=== PATIENT | male | born 1940 | race Caucasian/White ===

== ENCOUNTER → 2016-08-22 | Outpatient (CLI) | payer MEDICARE, BC ==
--- NOTE | 2016-08-22 11:40 | REP ---
CHEST, TWO VIEWS: HISTORY: Dyspnea. Linear densities are present in the lower lobes consistent with atelectasis or scar. There is blunting of the left costophrenic angle due to pleural thickening or a small pleural effusion. The heart is normal in size. The pulmonary vasculature is normal in appearance. The bony structure is intact. IMPRESSION: 1. Bibasilar atelectasis or scar. 2. There is blunting of the left costophrenic angle due to pleural thickening or a small pleural effusion. Signed by Micah Mcdonald MD 08/22/2016 11:41 A
[2016-08-22 14:20] LABS: MEAN CORPUSCULAR HEMOGLOBIN 28.8 pg (27.0-33.0); MEAN CORPUSCULAR HGB CONC 30.7 g/dl (32.0-36.5); MEAN CORPUSCULAR VOLUME 93.9 fl (80.0-96.0); RED CELL DISTRIBUTION WIDTH 14.2 % (11.5-14.5); WHITE BLOOD COUNT 7.3 K/mm3 (4.0-10.0)
[2016-08-22 14:40] LABS: ALBUMIN 3.5 GM/DL (3.2-5.2); ALBUMIN/GLOBULIN RATIO 0.83 (1.00-1.93); ALKALINE PHOSPHATASE 103 U/L (45-117); ALT/SGPT 30 U/L (12-78); ANION GAP 6 MEQ/L (8-16); AST/SGOT 24 U/L (15-37); BILIRUBIN,TOTAL 0.4 MG/DL (0.2-1.0); BLOOD UREA NITROGEN 15 MG/DL (7-18); CALCIUM LEVEL 9.3 MG/DL (8.8-10.2); CARBON DIOXIDE LEVEL 33 MEQ/L (21-32); CHLORIDE LEVEL 101 MEQ/L (98-107); CHOLESTEROL LEVEL 220 MG/DL (<200); CREATININE FOR GFR 1.12 MG/DL (0.70-1.30); GLOMERULAR FILTRATION RATE > 60.0 (>42); GLUCOSE, FASTING 102 MG/DL (83-110); POTASSIUM SERUM 5.1 MEQ/L (3.5-5.1); SODIUM LEVEL 140 MEQ/L (136-145); TOTAL PROTEIN 7.7 GM/DL (6.4-8.2); TRIGLYCERIDES LEVEL 105 MG/DL (<150)
== END ==
LOC: M SMT 11:01
PROVIDERS: ATTEND Internal Medicine
DX: E78.00 Pure hypercholesterolemia, unspecified (principal); R06.09 Other forms of dyspnea

== ENCOUNTER → 2017-03-14 | Outpatient (REF) | payer MEDICARE, BC ==
[2017-03-14 12:19] LABS: ALBUMIN 3.5 GM/DL (3.2-5.2); ALBUMIN/GLOBULIN RATIO 0.81 (1.00-1.93); ALKALINE PHOSPHATASE 83 U/L (45-117); ALT/SGPT 31 U/L (12-78); ANION GAP 4 MEQ/L (8-16); AST/SGOT 23 U/L (15-37); BILIRUBIN,TOTAL 0.4 MG/DL (0.2-1.0); BLOOD UREA NITROGEN 15 MG/DL (7-18); CALCIUM LEVEL 9.5 MG/DL (8.8-10.2); CARBON DIOXIDE LEVEL 33 MEQ/L (21-32); CHLORIDE LEVEL 104 MEQ/L (98-107); CHOLESTEROL LEVEL 258 MG/DL (<200); CREATININE FOR GFR 1.16 MG/DL (0.70-1.30); GLOMERULAR FILTRATION RATE > 60.0 (>42); GLUCOSE, FASTING 109 MG/DL (83-110); POTASSIUM SERUM 4.5 MEQ/L (3.5-5.1); SODIUM LEVEL 141 MEQ/L (136-145); TOTAL PROTEIN 7.8 GM/DL (6.4-8.2); TRIGLYCERIDES LEVEL 120 MG/DL (<150)
== END ==
LOC: M SFHCPLAZ 09:22
PROVIDERS: ATTEND Internal Medicine
DX: E78.00 Pure hypercholesterolemia, unspecified (principal)

== ENCOUNTER → 2017-09-11 | Outpatient (REF) | payer MEDICARE, BC ==
[2017-09-11 12:43] LABS: ALBUMIN 3.7 GM/DL (3.2-5.2); ALBUMIN/GLOBULIN RATIO 0.82 (1.00-1.93); ALKALINE PHOSPHATASE 90 U/L (45-117); ALT/SGPT 28 U/L (12-78); ANION GAP 5 MEQ/L (8-16); AST/SGOT 19 U/L (7-37); BILIRUBIN,TOTAL 0.6 MG/DL (0.2-1.0); BLOOD UREA NITROGEN 18 MG/DL (7-18); CALCIUM LEVEL 9.5 MG/DL (8.8-10.2); CARBON DIOXIDE LEVEL 34 MEQ/L (21-32); CHLORIDE LEVEL 100 MEQ/L (98-107); CHOLESTEROL LEVEL 267 MG/DL (<200); CHOLESTEROL RISK RATIO 3.467 (<5); CREATININE FOR GFR 1.22 MG/DL (0.70-1.30); GLOMERULAR FILTRATION RATE > 60.0 (>42); GLUCOSE, FASTING 108 MG/DL (70-100); HDL CHOLESTEROL 77 MG/DL (>40); LDL CHOLESTEROL 163.6 MG/DL (<100); MAGNESIUM LEVEL 2.5 MG/DL (1.8-2.4); NON-HDL-C 190 MG/DL; POTASSIUM SERUM 4.4 MEQ/L (3.5-5.1); SODIUM LEVEL 139 MEQ/L (136-145); TOTAL PROTEIN 8.2 GM/DL (6.4-8.2); TRIGLYCERIDES LEVEL 132 MG/DL (<150)
== END ==
LOC: M SFHCPLAZ 09:33
DX: I10 Essential (primary) hypertension (principal); E78.00 Pure hypercholesterolemia, unspecified
CPT/HCPCS: 83735

== ENCOUNTER 2018-01-04 07:18 | Day surgery (SDC) | payer MEDICARE, BC ==
[2018-01-04] MEDS: PHENYLEPHRINE 2.5% OPHTH SOL 2ML OS (07:53)
[2018-01-04] MEDS: OFLOXACIN 0.3 % (OCUFLOX) OPTH SOL 5ML OS (07:53)
[2018-01-04] MEDS: TROPICAMIDE 1% OPHTH SOLN 2ML OS (07:53)
[2018-01-04] MEDS: PROPARACAINE 0.5% OPHTH SOL 15ML OS (07:53)
[2018-01-04] MEDS ORDERED: fentaNYL 100 MCG/2 ML INJECTION (J3010) As Ordered (08:31)
[2018-01-04] MEDS ORDERED: MIDAZOLAM INJ 2 MG/2 ML VIAL (J2250) As Ordered (08:31)
[2018-01-04] MEDS: POVIDONE-IODINE 5% OPHTH PREP SOL 30ML As Ordered (08:57)
[2018-01-04] MEDS: LIDOCAINE 0.75%/EPINEPHRINE 0.025% IN BSS 1ML SYR INTRACAMERAL (OR ONLY) As Ordered (09:00)
[2018-01-04] MEDS: BALANCED SALT IRRIGATION SOLUTION 500ML BAG (FOR OR EYE MACHINE) As Ordered (09:01)
[2018-01-04] MEDS: DUOVISC (0.50ML VISCOAT/0.55ML PROVISC) OPHTH KIT As Ordered ×2 (09:13)
[2018-01-04] MEDS: CEFUROXIME 1MG/0.1ML INTRACAMERAL INJ As Ordered (09:13)
[2018-01-04] MEDS: ACETYLCHOLINE OPHTH SOLN 1% 2ML (MIOCHOL-E) As Ordered (09:19)
[2018-01-04] MEDS: MANNITOL 25% 12.5 GM/50 ML VIAL (J2150) As Ordered (09:38)
== END 2018-01-04 10:35 | disposition home or self-care (01) ==
LOC: M SDC 07:18
DX: H25.12 Age-related nuclear cataract, left eye (principal); J45.909 Unspecified asthma, uncomplicated; Z79.899 Other long term (current) drug therapy
CPT/HCPCS: 66984

== ENCOUNTER → 2018-03-12 | Outpatient (REF) | payer MEDICARE, BC ==
[2018-03-12 12:04] LABS: HEMATOCRIT 45.6 % (42.0-52.0); HEMOGLOBIN 14.8 g/dl (13.5-17.5); MEAN CORPUSCULAR HEMOGLOBIN 29.4 pg (27.0-33.0); MEAN CORPUSCULAR HGB CONC 32.5 g/dl (32.0-36.5); MEAN CORPUSCULAR VOLUME 90.7 fl (80.0-96.0); PLATELET COUNT, AUTOMATED 269 10^3/uL (150-450); RED BLOOD COUNT 5.03 10^6/uL (4.30-6.10); RED CELL DISTRIBUTION WIDTH 14.4 % (11.5-14.5); WHITE BLOOD COUNT 9.4 10^3/uL (4.0-10.0)
[2018-03-12 12:37] LABS: ALBUMIN 3.4 GM/DL (3.2-5.2); ALBUMIN/GLOBULIN RATIO 0.79 (1.00-1.93); ALKALINE PHOSPHATASE 73 U/L (45-117); ALT/SGPT 30 U/L (12-78); ANION GAP 10 MEQ/L (8-16); AST/SGOT 23 U/L (7-37); BILIRUBIN,TOTAL 0.6 MG/DL (0.2-1.0); BLOOD UREA NITROGEN 18 MG/DL (7-18); CALCIUM LEVEL 9.2 MG/DL (8.8-10.2); CARBON DIOXIDE LEVEL 29 MEQ/L (21-32); CHLORIDE LEVEL 104 MEQ/L (98-107); CHOLESTEROL LEVEL 262 MG/DL (<200); CREATININE FOR GFR 1.23 MG/DL (0.70-1.30); GLOMERULAR FILTRATION RATE > 60.0 (>42); GLUCOSE, FASTING 111 MG/DL (70-100); HDL CHOLESTEROL 74 MG/DL (>40); LDL CHOLESTEROL 162.4 MG/DL (<100); MAGNESIUM LEVEL 2.1 MG/DL (1.8-2.4); NON-HDL-C 188 MG/DL; POTASSIUM SERUM 3.7 MEQ/L (3.5-5.1); SODIUM LEVEL 143 MEQ/L (136-145); TOTAL PROTEIN 7.7 GM/DL (6.4-8.2); TRIGLYCERIDES LEVEL 128 MG/DL (<150)
[2018-03-12 16:23] LABS: ESTIMATED AVERAGE GLUCOSE 134 MG/DL (60-110); HEMOGLOBIN A1c 6.3 %
== END ==
LOC: M SFHCPLAZ 09:28
DX: J43.9 Emphysema, unspecified (principal); I10 Essential (primary) hypertension; R73.01 Impaired fasting glucose; E78.00 Pure hypercholesterolemia, unspecified
CPT/HCPCS: 83735

== ENCOUNTER → 2019-04-26 | Outpatient (REF) | payer MEDICARE, BC ==
[~2019-04-26] MED LIST: BREO1INH INH; CHLO125TA PO; D 50CAP PO; MULT1TAB10 PO
[2019-04-26 15:16] LABS: APPEARANCE, URINE CLEAR (CLEAR); BACTERIA, URINE AUTO NEGATIVE (NEGATIVE); BILIRUBIN, URINE AUTO NEGATIVE (NEGATIVE); BLOOD, URINE BLOOD NEGATIVE (NEGATIVE); COLOR, URINE YELLOW (YELLOW); GLUCOSE, URINE (UA) AUTO NEGATIVE (NEGATIVE); KETONE, URINE AUTO NEGATIVE (NEGATIVE); LEUKOCYTE ESTERASE, URINE AUTO NEGATIVE (NEGATIVE); NITRITE, URINE AUTO NEGATIVE (NEGATIVE); PROTEIN, URINE AUTO NEGATIVE (NEGATIVE); RBC, URINE AUTO 2 /HPF (0-3); SPECIFIC GRAVITY URINE AUTO 1.015 (1.002-1.035); SQUAMOUS EPITHELIAL CELL UR AU 0 /HPF (0-6); UROBILINOGEN, URINE AUTO 0.2 mg/dL (0.0-2.0); WBC, URINE AUTO 1 /HPF (0-3)
[2019-04-26 15:26] LABS: HEMATOCRIT 49.3 % (42.0-52.0); HEMOGLOBIN 15.6 g/dl (13.5-17.5); MEAN CORPUSCULAR HEMOGLOBIN 29.9 pg (27.0-33.0); MEAN CORPUSCULAR HGB CONC 31.6 g/dl (32.0-36.5); MEAN CORPUSCULAR VOLUME 94.4 fl (80.0-96.0); PLATELET COUNT, AUTOMATED 286 10^3/uL (150-450); RED BLOOD COUNT 5.22 10^6/uL (4.30-6.10); WHITE BLOOD COUNT 7.6 10^3/uL (4.0-10.0)
[2019-04-26 15:47] LABS: ALBUMIN 3.4 GM/DL (3.2-5.2); BILIRUBIN,TOTAL 0.5 MG/DL (0.2-1.0); CALCIUM LEVEL 9.7 MG/DL (8.8-10.2); CHOLESTEROL RISK RATIO 3.441 (<5); CREATININE FOR GFR 1.45 MG/DL (0.70-1.30); GLOMERULAR FILTRATION RATE 50.1 (>42); MAGNESIUM LEVEL 2.4 MG/DL (1.8-2.4); POTASSIUM SERUM 4.8 MEQ/L (3.5-5.1); TOTAL PROTEIN 7.6 GM/DL (6.4-8.2)
[2019-04-26 16:18] LABS: MALB URINE SIEMENS 11.2 MG/L
[2019-04-26 17:37] LABS: HEMOGLOBIN A1c 6.4 %
== END ==
LOC: M SFHCPLAZ 09:11
PROVIDERS: ATTEND Internal Medicine
DX: J43.9 Emphysema, unspecified (principal); I10 Essential (primary) hypertension; R73.01 Impaired fasting glucose; E78.00 Pure hypercholesterolemia, unspecified

== ENCOUNTER → 2019-09-09 | Outpatient (CLI) | payer MEDICARE, BC | LOC: M PLALAB 13:31 | PROVIDERS: ATTEND Internal Medicine | DX: M25.561 Pain in right knee (principal) ==

== ENCOUNTER → 2019-11-18 | Outpatient (REF) | payer MEDICARE, BC ==
[2019-11-18 13:19] LABS: ALBUMIN 3.6 GM/DL (3.2-5.2); BILIRUBIN,TOTAL 0.7 MG/DL (0.2-1.0); CALCIUM LEVEL 9.1 MG/DL (8.8-10.2); CHOLESTEROL RISK RATIO 3.555 (<5); CREATININE FOR GFR 1.6 MG/DL (0.70-1.30); GLOMERULAR FILTRATION RATE 44.7 (>42); MAGNESIUM LEVEL 2.4 MG/DL (1.8-2.4); POTASSIUM SERUM 4.8 MEQ/L (3.5-5.1); TOTAL PROTEIN 7.8 GM/DL (6.4-8.2)
[2019-11-18 13:59] LABS: HEMOGLOBIN A1c 6.7 %
== END ==
LOC: M PLALAB 09:26
PROVIDERS: ATTEND Internal Medicine
DX: E78.00 Pure hypercholesterolemia, unspecified (principal); I10 Essential (primary) hypertension; R73.01 Impaired fasting glucose
CPT/HCPCS: 36415; 80053; 80061; 83036; 83735; G0463

== ENCOUNTER → 2020-05-15 | Outpatient (REF) | payer MEDICARE, BC ==
[2020-05-15 13:29] LABS: HEMATOCRIT 48.8 % (42.0-52.0); HEMOGLOBIN 15.1 g/dl (13.5-17.5); MEAN CORPUSCULAR HEMOGLOBIN 29.2 pg (27.0-33.0); MEAN CORPUSCULAR HGB CONC 30.9 g/dl (32.0-36.5); MEAN CORPUSCULAR VOLUME 94.4 fl (80.0-96.0); PLATELET COUNT, AUTOMATED 304 10^3/uL (150-450); RED BLOOD COUNT 5.17 10^6/uL (4.30-6.10); WHITE BLOOD COUNT 7.2 10^3/uL (4.0-10.0)
[2020-05-15 13:59] LABS: HEMOGLOBIN A1c 5.9 %
[2020-05-15 14:05] LABS: ALBUMIN 3.7 GM/DL (3.2-5.2); BILIRUBIN,TOTAL 0.7 MG/DL (0.2-1.0); CALCIUM LEVEL 9.3 MG/DL (8.8-10.2); CHOLESTEROL RISK RATIO 3.484 (<5); CREATININE FOR GFR 1.58 MG/DL (0.70-1.30); GLOMERULAR FILTRATION RATE 45.3 (>42); MAGNESIUM LEVEL 2.3 MG/DL (1.8-2.4); POTASSIUM SERUM 5.1 MEQ/L (3.5-5.1); TOTAL PROTEIN 7.7 GM/DL (6.4-8.2)
[2020-05-15 14:11] LABS: CREATININE, URINE 57.4 MG/DL; MAU/CREAT RATIO 12.1 MCG/MG (0.0-30.0)
== END ==
LOC: M PLALAB 09:51
PROVIDERS: ATTEND Internal Medicine
DX: J43.9 Emphysema, unspecified (principal); I10 Essential (primary) hypertension; R73.01 Impaired fasting glucose; E78.00 Pure hypercholesterolemia, unspecified

== ENCOUNTER → 2020-11-12 | Outpatient (REF) | payer MEDICARE, BC ==
[2020-11-12 14:01] LABS: ALBUMIN 3.7 GM/DL (3.2-5.2); BILIRUBIN,TOTAL 0.5 MG/DL (0.2-1.0); CALCIUM LEVEL 9.5 MG/DL (8.8-10.2); CHOLESTEROL RISK RATIO 3.093 (<5); CREATININE FOR GFR 1.66 MG/DL (0.70-1.30); GLOMERULAR FILTRATION RATE 42.8 (>42); MAGNESIUM LEVEL 2.1 MG/DL (1.8-2.4); POTASSIUM SERUM 4.4 MEQ/L (3.5-5.1); TOTAL PROTEIN 7.8 GM/DL (6.4-8.2)
[2020-11-12 18:39] LABS: HEMOGLOBIN A1c 6.1 %
== END ==
LOC: M PLALAB 09:01
PROVIDERS: ATTEND Internal Medicine
DX: E78.00 Pure hypercholesterolemia, unspecified (principal); I10 Essential (primary) hypertension; R73.01 Impaired fasting glucose

== ENCOUNTER → 2021-05-13 | Outpatient (CLI) | payer MEDICARE, BC ==
[2021-05-13 14:07] LABS: BASO # 0.1 10^3/uL (0.0-0.2); BASO % 0.8 % (0.0-1.0); EOS # 0.1 10^3/uL (0.0-0.5); EOS % 1.6 % (0.0-3.0); HEMATOCRIT 49.2 % (42.0-52.0); HEMOGLOBIN 15.3 g/dl (13.5-17.5); LYMPH # 1.3 10^3/uL (1.5-5.0); LYMPH % 17.8 % (24.0-44.0); MEAN CORPUSCULAR HEMOGLOBIN 29.8 pg (27.0-33.0); MEAN CORPUSCULAR HGB CONC 31.1 g/dl (32.0-36.5); MEAN CORPUSCULAR VOLUME 95.9 fl (80.0-96.0); MONO % 13.6 % (2.0-8.0); NEUTROPHILS # 4.9 10^3/uL (1.5-8.5); NEUTROPHILS % 65.9 % (36.0-66.0); PLATELET COUNT, AUTOMATED 285 10^3/uL (150-450); RED BLOOD COUNT 5.13 10^6/uL (4.30-6.10); WHITE BLOOD COUNT 7.4 10^3/uL (4.0-10.0)
[2021-05-13 14:33] LABS: CREATININE, URINE 70.6 MG/DL; MALB URINE SIEMENS 15.4 MG/L; MAU/CREAT RATIO 21.8 MCG/MG (0.0-30.0)
[2021-05-13 14:44] LABS: ALBUMIN 3.4 GM/DL (3.2-5.2); ALT/SGPT 19 U/L (12-78); BILIRUBIN,TOTAL 0.6 MG/DL (0.2-1.0); BLOOD UREA NITROGEN 29 MG/DL (7-18); CALCIUM LEVEL 9.1 MG/DL (8.8-10.2); CARBON DIOXIDE LEVEL 31 MEQ/L (21-32); CHLORIDE LEVEL 105 MEQ/L (98-107); CHOLESTEROL LEVEL 241 MG/DL (<200); CHOLESTEROL RISK RATIO 3.256 (<5); CREATININE FOR GFR 1.85 MG/DL (0.70-1.30); GLOMERULAR FILTRATION RATE 37.6 (>35); GLUCOSE, FASTING 106 MG/DL (70-100); HDL CHOLESTEROL 74 MG/DL (>40); LDL CHOLESTEROL 151 MG/DL (<100); MAGNESIUM LEVEL 2.2 MG/DL (1.8-2.4); NON-HDL-C 167 MG/DL; POTASSIUM SERUM 5.8 MEQ/L (3.5-5.1); SODIUM LEVEL 138 MEQ/L (136-145); TOTAL PROTEIN 7.5 GM/DL (6.4-8.2); TRIGLYCERIDES LEVEL 80 MG/DL (<150)
[2021-05-13 15:22] LABS: HEPATITIS C VIRUS ABY INDEX < 0.0 INDEX (<0.8)
[2021-05-13 15:32] LABS: HEMOGLOBIN A1c 5.8 %
== END ==
LOC: M PLALAB 09:49
PROVIDERS: ATTEND Internal Medicine
DX: E78.00 Pure hypercholesterolemia, unspecified (principal); J43.9 Emphysema, unspecified; I10 Essential (primary) hypertension; R73.01 Impaired fasting glucose; Z11.59 Encounter for screening for other viral diseases

== ENCOUNTER → 2021-07-21 | Outpatient (REF) | payer MEDICARE, BC ==
[2021-07-21 13:47] LABS: APPEARANCE, URINE CLEAR (CLEAR); BACTERIA, URINE AUTO NEGATIVE (NEGATIVE); BILIRUBIN, URINE AUTO NEGATIVE (NEGATIVE); BLOOD, URINE BLOOD 1+ (NEGATIVE); COLOR, URINE STRAW (YELLOW); GLUCOSE, URINE (UA) AUTO NEGATIVE (NEGATIVE); KETONE, URINE AUTO NEGATIVE (NEGATIVE); LEUKOCYTE ESTERASE, URINE AUTO NEGATIVE (NEGATIVE); NITRITE, URINE AUTO NEGATIVE (NEGATIVE); PROTEIN, URINE AUTO NEGATIVE (NEGATIVE); RBC, URINE AUTO 1 /HPF (0-3); SPECIFIC GRAVITY URINE AUTO 1.006 (1.002-1.035); SQUAMOUS EPITHELIAL CELL UR AU 0 /HPF (0-6); UROBILINOGEN, URINE AUTO 0.2 mg/dL (0.0-2.0); WBC, URINE AUTO 0 /HPF (0-3)
== END ==
LOC: M SMT 12:59
PROVIDERS: ATTEND Physician Assistant
DX: R31.9 Hematuria, unspecified (principal)
CPT/HCPCS: 81001; 87086; 88108; G0463

== ENCOUNTER → 2021-09-16 | Outpatient (REF) | payer MEDICARE, BC ==
[2021-09-16 17:49] LABS: APPEARANCE, URINE CLEAR (CLEAR); BACTERIA, URINE AUTO NEGATIVE (NEGATIVE); BILIRUBIN, URINE AUTO NEGATIVE (NEGATIVE); BLOOD, URINE BLOOD 3+ (NEGATIVE); GLUCOSE, URINE (UA) AUTO NEGATIVE (NEGATIVE); KETONE, URINE AUTO NEGATIVE (NEGATIVE); LEUKOCYTE ESTERASE, URINE AUTO TRACE (NEGATIVE); NITRITE, URINE AUTO NEGATIVE (NEGATIVE); PROTEIN, URINE AUTO NEGATIVE (NEGATIVE); RBC, URINE AUTO 33 /HPF (0-3); SPECIFIC GRAVITY URINE AUTO 1.003 (1.002-1.035); SQUAMOUS EPITHELIAL CELL UR AU 0 /HPF (0-6); UROBILINOGEN, URINE AUTO 0.2 mg/dL (0.0-2.0); WBC, URINE AUTO 0 /HPF (0-3)
[2021-09-16 17:50] LABS: COLOR, URINE YELLOW (YELLOW)
== END ==
LOC: M SMT 16:49
PROVIDERS: ATTEND Urology
DX: R31.0 Gross hematuria (principal)

== ENCOUNTER → 2021-10-01 | Outpatient (CLI) | payer MEDICARE, BC ==
[~2021-10-01] MED LIST changes: +FLUTISP NARES; +LISI20TA33 PO; +TAMS1CAP17 PO
[2021-10-01 15:38] LABS: HEMATOCRIT 48.8 % (42.0-52.0); HEMOGLOBIN 15.3 g/dl (13.5-17.5); MEAN CORPUSCULAR HGB CONC 31.4 g/dl (32.0-36.5); MEAN CORPUSCULAR VOLUME 92.4 fl (80.0-96.0); PLATELET COUNT, AUTOMATED 344 10^3/uL (150-450); RED BLOOD COUNT 5.28 10^6/uL (4.30-6.10); WHITE BLOOD COUNT 8.9 10^3/uL (4.0-10.0)
[2021-10-01 16:07] LABS: ALBUMIN 3.7 GM/DL (3.2-5.2); ALT/SGPT 31 U/L (12-78); BILIRUBIN,TOTAL 0.5 MG/DL (0.2-1.0); BLOOD UREA NITROGEN 23 MG/DL (7-18); CALCIUM LEVEL 9.8 MG/DL (8.8-10.2); CARBON DIOXIDE LEVEL 36 MEQ/L (21-32); CHLORIDE LEVEL 101 MEQ/L (98-107); CREATININE FOR GFR 1.64 MG/DL (0.70-1.30); GLOMERULAR FILTRATION RATE 43.2 (>35); GLUCOSE, FASTING 106 MG/DL (70-100); POTASSIUM SERUM 5.4 MEQ/L (3.5-5.1); SODIUM LEVEL 136 MEQ/L (136-145); TOTAL PROTEIN 7.9 GM/DL (6.4-8.2)
== END ==
LOC: M PLAIMG 12:16
PROVIDERS: ATTEND Internal Medicine
DX: R31.0 Gross hematuria (principal)

== ENCOUNTER → 2021-10-06 | Outpatient (CLI) | payer MEDICARE, BC | LOC: M LABSMTC 10:51 | PROVIDERS: ATTEND Anesthesiology | DX: Z01.818 Encounter for other preprocedural examination (principal); Z11.52 Encounter for screening for COVID-19 ==

== ENCOUNTER 2021-10-11 10:53 | Day surgery (SDC) | payer MEDICARE, BC ==
[~2021-10-11] VITALS: Ht 180.3 cm; Wt 97.4 kg
[~2021-10-11 10:53] MED LIST changes: +CIPROFLOXACIN 400 MG in IV 1 EA IV ONE; +LIDOCAINE 1% MDV 20ML VIAL SQ PRN; +LIDOCAINE 2% 100MG/5ML SDV (FOR ANES.) As Ordered ONE; +LR 1,000 ML IV ONE; +ONDANSETRON 4MG/2ML VIAL As Ordered ONE; +ROCURONIUM BROMIDE 50 MG/5 ML VIAL As Ordered ONE; +dexameTHASONE 4 MG/ML 1ML VIAL (J1100 PER 1MG) As Ordered ONE; +fentaNYL 100 MCG/2 ML INJECTION As Ordered ONE; +propofoL 200 MG/20 ML VIAL As Ordered ONE
[2021-10-11] MEDS ORDERED: ceFAZolin 2 GM/D5W 50 ML IV BAG (J0690 PER 500MG) As Ordered ONE (11:54)
[2021-10-11] MEDS ORDERED: MIDAZOLAM INJ 2MG/2ML VIAL (J2250 PER 1MG) As Ordered ONE (12:01)
[2021-10-11] MEDS ORDERED: SUGAMMADEX SODIUM 500 MG/5 ML VIAL (BRIDION) As Ordered ONE (12:01)
[2021-10-11] MEDS ORDERED: PHENYLephrine 500MCG 5ML (100MCG/ML) SYRINGE As Ordered ONE (12:02)
[2021-10-11] MEDS ORDERED: ACETAMINOPHEN 1000MG 100ML IV BTL (OFIRMEV) (J0131 PER 10MG) As Ordered ONE (12:07)
[2021-10-11] MEDS ORDERED: LIDOCAINE 2% 5ML JELLY UROJET As Ordered ONE (12:33)
[2021-10-11] MEDS ORDERED: PYRI1TAB5 PO (12:55)
[2021-10-11] MEDS ORDERED: BACT800T5 PO (12:55)
[2021-10-11] MEDS ORDERED: HYDR-3713 PO (12:55)
[2021-10-11] MEDS ORDERED: OXYB5TAB10 PO (12:55)
[2021-10-11] MEDS ORDERED: oxyCODONE 5MG TAB PO PRN (13:15)
[2021-10-11] MEDS ORDERED: HYDROMORPHONE HCL 0.5 MG/ 0.5 ML SYRINGE (J1170 PER 1) IV PRN (13:15)
[2021-10-11] MEDS ORDERED: LR 1,000 ML IV SCH (13:15)
[2021-10-11] MEDS ORDERED: ONDANSETRON 4MG/2ML VIAL IV PRN (13:15)
[2021-10-11] MEDS ORDERED: fentaNYL 100 MCG/2 ML INJECTION IV PRN (13:15)
[2021-10-11 14:50] VITALS: BP 168/78
== END 2021-10-11 15:35 | disposition home or self-care (01) ==
LOC: M SDC 10:53
PROVIDERS: ATTEND Urology
DX: C67.9 Malignant neoplasm of bladder, unspecified (principal); I10 Essential (primary) hypertension; J44.9 Chronic obstructive pulmonary disease, unspecified; R06.83 Snoring; Z87.891 Personal history of nicotine dependence; Z79.899 Other long term (current) drug therapy; Z79.51 Long term (current) use of inhaled steroids
CPT/HCPCS: 52235; 52332; 88305; C1769; C2617; J0131; J0690; J0744; J1100; J2250; J2370; J2405; J3010

== ENCOUNTER → 2021-11-17 | Outpatient (CLI) | payer MEDICARE, BC ==
[~2021-11-17] MED LIST changes: +BACT800T5 PO; -CIPROFLOXACIN 400 MG in IV 1 EA IV ONE; +HYDR-3713 PO; -LIDOCAINE 1% MDV 20ML VIAL SQ PRN; -LIDOCAINE 2% 100MG/5ML SDV (FOR ANES.) As Ordered ONE; -LR 1,000 ML IV ONE; -ONDANSETRON 4MG/2ML VIAL As Ordered ONE; +OXYB5TAB10 PO; +PYRI1TAB5 PO; -ROCURONIUM BROMIDE 50 MG/5 ML VIAL As Ordered ONE; -dexameTHASONE 4 MG/ML 1ML VIAL (J1100 PER 1MG) As Ordered ONE; -fentaNYL 100 MCG/2 ML INJECTION As Ordered ONE; -propofoL 200 MG/20 ML VIAL As Ordered ONE
[2021-11-17 13:58] LABS: ALBUMIN 3.5 GM/DL (3.2-5.2); BILIRUBIN,TOTAL 0.4 MG/DL (0.2-1.0); CALCIUM LEVEL 9.5 MG/DL (8.8-10.2); CHOLESTEROL RISK RATIO 3.43 (<5); CREATININE FOR GFR 1.69 MG/DL (0.70-1.30); GLOMERULAR FILTRATION RATE 41.8 (>35); PHOSPHORUS LEVEL 3.2 MG/DL (2.5-4.9); POTASSIUM SERUM 4.9 MEQ/L (3.5-5.1); TOTAL PROTEIN 7.2 GM/DL (6.4-8.2)
[2021-11-17 14:44] LABS: HEMOGLOBIN A1c 5.9 %
[2021-11-17 16:36] LABS: PTH INTACT 82.2 PG/ML (18.5-88.0)
== END ==
LOC: M PLALAB 09:49
PROVIDERS: ATTEND Internal Medicine
DX: N18.32 Chronic kidney disease, stage 3b (principal); R73.01 Impaired fasting glucose; E78.00 Pure hypercholesterolemia, unspecified

== ENCOUNTER → 2022-02-11 | Outpatient (REF) | payer MEDICARE, BC ==
[2022-02-11 17:19] LABS: APPEARANCE, URINE CLEAR (CLEAR); BACTERIA, URINE AUTO NEGATIVE (NEGATIVE); BILIRUBIN, URINE AUTO NEGATIVE (NEGATIVE); BLOOD, URINE BLOOD 1+ (NEGATIVE); COLOR, URINE STRAW (YELLOW); GLUCOSE, URINE (UA) AUTO NEGATIVE (NEGATIVE); KETONE, URINE AUTO NEGATIVE (NEGATIVE); LEUKOCYTE ESTERASE, URINE AUTO 1+ (NEGATIVE); NITRITE, URINE AUTO NEGATIVE (NEGATIVE); PROTEIN, URINE AUTO NEGATIVE (NEGATIVE); RBC, URINE AUTO 2 /HPF (0-3); SPECIFIC GRAVITY URINE AUTO 1.005 (1.002-1.035); SQUAMOUS EPITHELIAL CELL UR AU 0 /HPF (0-6); UROBILINOGEN, URINE AUTO 0.2 mg/dL (0.0-2.0); WBC, URINE AUTO 3 /HPF (0-3)
== END ==
LOC: M SMT 16:47
PROVIDERS: ATTEND Urology
DX: Z85.51 Personal history of malignant neoplasm of bladder (principal)

== ENCOUNTER → 2022-05-19 | Outpatient (CLI) | payer MEDICARE, BC ==
[2022-05-19 14:14] LABS: HEMATOCRIT 55.5 % (42.0-52.0); HEMOGLOBIN 17.1 g/dl (13.5-17.5); MEAN CORPUSCULAR HEMOGLOBIN 29.4 pg (27.0-33.0); MEAN CORPUSCULAR HGB CONC 30.8 g/dl (32.0-36.5); MEAN CORPUSCULAR VOLUME 95.4 fl (80.0-96.0); PLATELET COUNT, AUTOMATED 240 10^3/uL (150-450); RED BLOOD COUNT 5.82 10^6/uL (4.30-6.10)
[2022-05-19 15:02] LABS: CREATININE, URINE 44.4 MG/DL; MALB URINE SIEMENS 15.9 MG/L; MAU/CREAT RATIO 35.8 MCG/MG (0.0-30.0)
[2022-05-19 15:09] LABS: CREATININE FOR GFR 1.84 MG/DL (0.70-1.30)
[2022-05-19 15:10] LABS: ALBUMIN 3.4 GM/DL (3.2-5.2); BILIRUBIN,TOTAL 0.7 MG/DL (0.2-1.0); C REACTIVE PROTEIN QUANTITATIV 1.04 MG/DL (0.00-0.30); CALCIUM LEVEL 9.3 MG/DL (8.8-10.2); CHOLESTEROL RISK RATIO 3.175 (<5); FREE T4 1.25 NG/DL (0.76-1.46); GLOMERULAR FILTRATION RATE 37.8 (>35); POTASSIUM SERUM 4.8 MEQ/L (3.5-5.1); THYROID STIMULATING HORMONE 5.1 uIU/ML (0.358-3.740); TOTAL PROTEIN 7.8 GM/DL (6.4-8.2)
[2022-05-19 15:55] LABS: TOTAL 25(OH) VITAMIN D 66.2 NG/ML (30.0-100.0)
[2022-05-19 16:17] LABS: HEMOGLOBIN A1c 6.5 %
== END ==
LOC: M PLALAB 10:03
PROVIDERS: ATTEND Internal Medicine Hematology
DX: I12.9 Hypertensive chronic kidney disease with stage 1 through stage 4 chronic kidney disease, or unspecified chronic kidney disease (principal); Z85.51 Personal history of malignant neoplasm of bladder
CPT/HCPCS: 36415; 80053; 80061; 82043; 82306; 82607; 83036; 84439; 84443; 85027; 86140; G0103

== ENCOUNTER → 2022-06-02 | Outpatient (CLI) | payer MEDICARE, BC | LOC: M RAD 07:25 | PROVIDERS: ATTEND Internal Medicine Hematology | DX: J43.9 Emphysema, unspecified (principal); I51.7 Cardiomegaly | CPT/HCPCS: 71046; 78582; A9540; A9567 ==

== ENCOUNTER → 2022-06-06 | Outpatient (CLI) | payer MEDICARE, BC | LOC: M PLALAB 12:59 | PROVIDERS: ATTEND Internal Medicine Hematology | DX: J43.9 Emphysema, unspecified (principal) ==

== ENCOUNTER → 2022-06-15 | Outpatient (REF) | payer MEDICARE, BC ==
[~2022-06-15] MED LIST changes: +ECOT81TA5 PO; +FLUT1BLS8; +MACR100C43 PO; +MULT-90 PO; +VITA100093 PO
[2022-06-15 20:07] LABS: APPEARANCE, URINE MANUAL CLEAR (CLEAR); COLOR, URINE MANUAL LT YELLOW (YELLOW)
[2022-06-15 20:09] LABS: BILIRUBIN, URINE MANUAL NEGATIVE (NEGATIVE); BLOOD URINE MANUAL NEGATIVE (NEGATIVE); GLUCOSE, URINE (UA) MANUAL NEGATIVE (NEGATIVE); KETONE, URINE MANUAL NEGATIVE (NEGATIVE); LEUKOCYTE ESTERASE, URINE MAN NEGATIVE (NEGATIVE); NITRITE, URINE MANUAL NEGATIVE (NEGATIVE); PROTEIN, URINE MANUAL NEGATIVE (NEGATIVE); UROBILINOGEN, URINE MANUAL NORMAL (NORMAL)
== END ==
LOC: M SMT 17:15
PROVIDERS: ATTEND Urology
DX: Z85.51 Personal history of malignant neoplasm of bladder (principal); Z08 Encounter for follow-up examination after completed treatment for malignant neoplasm

== ENCOUNTER → 2022-06-27 | Outpatient (CLI) | payer MEDICARE, BC ==
[~2022-06-27] MED LIST changes: -ECOT81TA5 PO; -FLUT1BLS8; -MACR100C43 PO; -MULT-90 PO; -VITA100093 PO
== END ==
LOC: M RAD 10:31
PROVIDERS: ATTEND Urology
DX: N13.30 Unspecified hydronephrosis (principal); N13.4 Hydroureter; K57.30 Diverticulosis of large intestine without perforation or abscess without bleeding; C67.4 Malignant neoplasm of posterior wall of bladder

== ENCOUNTER → 2022-07-07 | Outpatient (CLI) | payer MEDICARE, BC | LOC: M CARPUL 13:43 | PROVIDERS: ATTEND Internal Medicine Pulmonary Disease | DX: R91.8 Other nonspecific abnormal finding of lung field (principal); J44.9 Chronic obstructive pulmonary disease, unspecified ==

== ENCOUNTER → 2022-07-28 | Outpatient (CLI) | payer MEDICARE, BC ==
[~2022-07-28] MED LIST changes: +ECOT81TA5 PO; +FLUT1BLS8; +MACR100C43 PO; +MULT-90 PO; +VITA100093 PO
[2022-07-28 15:35] LABS: HEMATOCRIT 46.8 % (42.0-52.0); MEAN CORPUSCULAR HEMOGLOBIN 29.1 pg (27.0-33.0); MEAN CORPUSCULAR HGB CONC 29.9 g/dl (32.0-36.5); MEAN CORPUSCULAR VOLUME 97.3 fl (80.0-96.0); PLATELET COUNT, AUTOMATED 280 10^3/uL (150-450); RED BLOOD COUNT 4.81 10^6/uL (4.30-6.10); WHITE BLOOD COUNT 9.1 10^3/uL (4.0-10.0)
[2022-07-28 16:03] LABS: ALBUMIN 3.1 G/DL (3.2-5.2); BILIRUBIN,TOTAL 0.5 MG/DL (0.3-1.2); CALCIUM LEVEL 8.9 MG/DL (8.3-10.6); CREATININE FOR GFR 1.53 MG/DL (0.70-1.30); GLOMERULAR FILTRATION RATE 46.7 (>35); POTASSIUM SERUM 4.7 MMOL/L (3.5-5.1); TOTAL PROTEIN 6.9 G/DL (5.7-8.2)
[2022-07-28 19:33] LABS: APPEARANCE, URINE MANUAL CLEAR (CLEAR); COLOR, URINE MANUAL LT YELLOW (YELLOW)
[2022-07-28 19:34] LABS: BILIRUBIN, URINE MANUAL NEGATIVE (NEGATIVE); BLOOD URINE MANUAL TRACE (NEGATIVE); GLUCOSE, URINE (UA) MANUAL NEGATIVE (NEGATIVE); KETONE, URINE MANUAL NEGATIVE (NEGATIVE); NITRITE, URINE MANUAL NEGATIVE (NEGATIVE); PH,URINE MAN 6.5 UNITS (5.0 - 7.0); PROTEIN, URINE MANUAL NEGATIVE (NEGATIVE); UROBILINOGEN, URINE MANUAL NORMAL (NORMAL)
[2022-07-28 19:35] LABS: LEUKOCYTE ESTERASE, URINE MAN NEGATIVE (NEGATIVE)
[2022-07-28 20:17] LABS: RBC, URINE 20-30 /hpf (0-3); WBC, URINE 0-1 /hpf (0-3)
[2022-07-28 20:18] LABS: BACTERIA, URINE NONE SEEN; SQUAMOUS EPITHELIAL CELL URINE NONE SEEN /hpf (SMALL AMT)
[2022-07-28 20:19] LABS: HYALINE CAST, URINE NONE SEEN /lpf (0-1)
== END ==
LOC: M PLALAB 13:00
PROVIDERS: ATTEND Urology
DX: C67.4 Malignant neoplasm of posterior wall of bladder (principal); Z79.899 Other long term (current) drug therapy

== ENCOUNTER → 2022-08-01 | Outpatient (CLI) | payer MEDICARE, BC ==
[~2022-08-01] MED LIST changes: -MACR100C43 PO
== END ==
LOC: M LABSMTC 10:21
PROVIDERS: ATTEND Anesthesiology
DX: Z01.812 Encounter for preprocedural laboratory examination (principal); Z11.52 Encounter for screening for COVID-19

== ENCOUNTER 2022-08-04 06:36 | Day surgery (SDC) | payer MEDICARE, BC ==
[~2022-08-04] VITALS: Ht 180.3 cm; Wt 98.0 kg
[~2022-08-04 06:36] MED LIST changes: +ceFAZolin SOD 2 GM in IV 1 EA IV ONE
[2022-08-04] MEDS ORDERED: LR 1,000 ML IV SCH ×2 (07:35→09:05)
[2022-08-04] MEDS ORDERED: LIDOCAINE 2% 5ML JELLY UROJET As Ordered ONE (07:59)
[2022-08-04] MEDS ORDERED: ePHEDrine SULFATE 25 MG/5 ML(5MG/ML) SYRINGE As Ordered ONE (08:36)
[2022-08-04] MEDS ORDERED: ACETAMINOPHEN 1000MG 100ML IV BAG As Ordered ONE (08:36)
[2022-08-04] MEDS ORDERED: fentaNYL 100 MCG/2 ML INJECTION As Ordered ONE (08:36)
[2022-08-04] MEDS ORDERED: propofoL 200 MG/20 ML VIAL As Ordered ONE (08:36)
[2022-08-04] MEDS ORDERED: LIDOCAINE 2% 100MG/5ML SDV (FOR ANES.) As Ordered ONE (08:36)
[2022-08-04] MEDS ORDERED: ONDANSETRON 4MG 2ML VIAL As Ordered ONE (08:36)
[2022-08-04] MEDS ORDERED: PHENYLephrine 500MCG 5ML (100MCG/ML) SYRINGE As Ordered ONE (08:54)
[2022-08-04] MEDS ORDERED: HYDROMORPHONE HCL 0.5 MG/ 0.5 ML SYRINGE IV PRN (09:05)
[2022-08-04] MEDS ORDERED: oxyCODONE 5MG TAB PO PRN (09:05)
[2022-08-04] MEDS ORDERED: ONDANSETRON 4MG 2ML VIAL IV PRN (09:05)
[2022-08-04] MEDS ORDERED: fentaNYL 100 MCG/2 ML INJECTION IV PRN (09:05)
[2022-08-04] MEDS ORDERED: MACR100C43 PO (09:20)
[2022-08-04] MEDS ORDERED: OXYB5TAB10 PO (09:20)
[2022-08-04] MEDS ORDERED: PYRI1TAB5 PO (09:20)
[2022-08-04 10:45] VITALS: BP 136/70
== END 2022-08-04 10:52 | disposition home or self-care (01) ==
LOC: M SDC 06:36
PROVIDERS: ATTEND Urology
DX: C67.4 Malignant neoplasm of posterior wall of bladder (principal); N13.1 Hydronephrosis with ureteral stricture, not elsewhere classified; I10 Essential (primary) hypertension; J44.9 Chronic obstructive pulmonary disease, unspecified; R06.02 Shortness of breath; Z79.899 Other long term (current) drug therapy; Z79.82 Long term (current) use of aspirin; Z79.51 Long term (current) use of inhaled steroids
CPT/HCPCS: 52224; 52234; 52341; 88305; C1769; J1100; J2370; J2405

== ENCOUNTER → 2022-11-15 | Outpatient (REF) | payer MEDICARE, BC ==
[~2022-11-15] MED LIST changes: +FLUT50SP17 NARES; -FLUTISP NARES; +MACR100C43 PO; -ceFAZolin SOD 2 GM in IV 1 EA IV ONE
[2022-11-15 16:03] LABS: APPEARANCE, URINE CLEAR (CLEAR); BACTERIA, URINE AUTO NEGATIVE (NEGATIVE); BILIRUBIN, URINE AUTO NEGATIVE (NEGATIVE); BLOOD, URINE BLOOD NEGATIVE (NEGATIVE); COLOR, URINE YELLOW (YELLOW); GLUCOSE, URINE (UA) AUTO NEGATIVE (NEGATIVE); KETONE, URINE AUTO NEGATIVE (NEGATIVE); LEUKOCYTE ESTERASE, URINE AUTO NEGATIVE (NEGATIVE); NITRITE, URINE AUTO NEGATIVE (NEGATIVE); PROTEIN, URINE AUTO NEGATIVE (NEGATIVE); RBC, URINE AUTO 0 /HPF (0-3); SPECIFIC GRAVITY URINE AUTO 1.013 (1.002-1.035); SQUAMOUS EPITHELIAL CELL UR AU 0 /HPF (0-6); UROBILINOGEN, URINE AUTO 0.2 mg/dL (0.0-2.0); WBC, URINE AUTO 1 /HPF (0-3)
== END ==
LOC: M SMT 15:28
PROVIDERS: ATTEND Urology
DX: Z85.51 Personal history of malignant neoplasm of bladder (principal)

== ENCOUNTER → 2022-12-08 | Outpatient (CLI) | payer MEDICARE, BC | LOC: M RAD 14:20 | PROVIDERS: ATTEND Urology | DX: Z85.51 Personal history of malignant neoplasm of bladder (principal) ==

== ENCOUNTER → 2022-12-19 | Outpatient (CLI) | payer MEDICARE, BC ==
[2022-12-19 14:02] LABS: HEMATOCRIT 46.1 % (42.0-52.0); MEAN CORPUSCULAR HEMOGLOBIN 29.9 pg (27.0-33.0); MEAN CORPUSCULAR HGB CONC 30.4 g/dl (32.0-36.5); MEAN CORPUSCULAR VOLUME 98.3 fl (80.0-96.0); PLATELET COUNT, AUTOMATED 264 10^3/uL (150-450); RED BLOOD COUNT 4.69 10^6/uL (4.30-6.10); WHITE BLOOD COUNT 8.8 10^3/uL (4.0-10.0)
[2022-12-19 14:24] LABS: HEMOGLOBIN A1c 6.3 % (4.0-6.0)
[2022-12-19 14:33] LABS: ALBUMIN 3.2 G/DL (3.2-5.2); ALKALINE PHOSPHATASE 91 U/L (46-116); ALT/SGPT 14 U/L (7.0-40); AST/SGOT 15 U/L (<34); BILIRUBIN,TOTAL 0.4 MG/DL (0.3-1.2); BLOOD UREA NITROGEN 51 MG/DL (9-23); CALCIUM LEVEL 9.1 MG/DL (8.3-10.6); CARBON DIOXIDE LEVEL 35 MMOL/L (20-31); CHLORIDE LEVEL 104 MMOL/L (98-107); CHOLESTEROL LEVEL 240 MG/DL (<200); CHOLESTEROL RISK RATIO 3.93 (<5); CREATININE FOR GFR 2.23 MG/DL (0.70-1.30); GLOMERULAR FILTRATION RATE 30.3 (>35); GLUCOSE, FASTING 121 MG/DL (74-106); LDL CHOLESTEROL 156.6 MG/DL (<100); POTASSIUM SERUM 5.1 MMOL/L (3.5-5.1); SODIUM LEVEL 141 MMOL/L (136-145); TRIGLYCERIDES LEVEL 112 MG/DL (<150)
[2022-12-19 14:34] LABS: FREE T4 0.99 NG/DL (0.89-1.76)
[2022-12-19 14:35] LABS: TOTAL 25(OH) VITAMIN D 59.7 NG/ML (20.0-100.0)
[2022-12-19 14:37] LABS: VITAMIN B12 LEVEL > 2000 PG/ML (211-911)
[2022-12-19 20:06] LABS: MAU/CREAT RATIO 3.8 MCG/MG (0.0-30.0)
== END ==
LOC: M PLALAB 09:09
PROVIDERS: ATTEND Internal Medicine Hematology
DX: E78.00 Pure hypercholesterolemia, unspecified (principal); C67.9 Malignant neoplasm of bladder, unspecified; J43.9 Emphysema, unspecified
CPT/HCPCS: 36415; 80053; 80061; 82043; 82306; 82607; 83036; 83880; 84439; 84443; 85027; 86140; G0103

== ENCOUNTER → 2023-01-09 | Outpatient (CLI) | payer MEDICARE, BC ==
[2023-01-09 14:55] LABS: ALBUMIN 3.3 G/DL (3.2-5.2); CALCIUM LEVEL 8.7 MG/DL (8.3-10.6); CREATININE FOR GFR 1.7 MG/DL (0.70-1.30); GLOMERULAR FILTRATION RATE 41.4 (>35); PHOSPHORUS LEVEL 3.1 MG/DL (2.4-5.1); POTASSIUM SERUM 5.7 MMOL/L (3.5-5.1)
== END ==
LOC: M PLALAB 10:04
PROVIDERS: ATTEND Internal Medicine Hematology
DX: N18.32 Chronic kidney disease, stage 3b (principal)

== ENCOUNTER → 2023-01-17 | Outpatient (CLI) | payer MEDICARE, BC ==
[2023-01-17 14:48] LABS: CALCIUM LEVEL 9.1 MG/DL (8.3-10.6); CREATININE FOR GFR 2.03 MG/DL (0.70-1.30); GLOMERULAR FILTRATION RATE 33.7 (>35); POTASSIUM SERUM 4.4 MMOL/L (3.5-5.1)
== END ==
LOC: M PLALAB 10:28
PROVIDERS: ATTEND Internal Medicine Hematology
DX: E87.5 Hyperkalemia (principal)

== ENCOUNTER → 2023-02-09 | Outpatient (CLI) | payer MEDICARE, BC | LOC: M RAD 13:56 | PROVIDERS: ATTEND Internal Medicine Pulmonary Disease | DX: R91.8 Other nonspecific abnormal finding of lung field (principal) ==

== ENCOUNTER → 2023-02-14 | Outpatient (REF) | payer MEDICARE, BC ==
[2023-02-14 18:39] LABS: APPEARANCE, URINE CLEAR (CLEAR); BACTERIA, URINE AUTO NEGATIVE (NEGATIVE); BILIRUBIN, URINE AUTO NEGATIVE (NEGATIVE); BLOOD, URINE BLOOD NEGATIVE (NEGATIVE); COLOR, URINE YELLOW (YELLOW); GLUCOSE, URINE (UA) AUTO NEGATIVE (NEGATIVE); KETONE, URINE AUTO NEGATIVE (NEGATIVE); LEUKOCYTE ESTERASE, URINE AUTO NEGATIVE (NEGATIVE); MUCUS, URINE SMALL (NEGATIVE); NITRITE, URINE AUTO NEGATIVE (NEGATIVE); PROTEIN, URINE AUTO NEGATIVE (NEGATIVE); RBC, URINE AUTO 0 /HPF (0-3); SPECIFIC GRAVITY URINE AUTO 1.011 (1.002-1.035); SQUAMOUS EPITHELIAL CELL UR AU 0 /HPF (0-6); UROBILINOGEN, URINE AUTO 0.2 mg/dL (0.0-2.0); WBC, URINE AUTO 0 /HPF (0-3)
== END ==
LOC: M SMT 17:54
PROVIDERS: ATTEND Urology
DX: Z85.51 Personal history of malignant neoplasm of bladder (principal)

== ENCOUNTER 2023-03-02 22:25 | Emergency (ER) | payer BC, MEDICARE ==
[~2023-03-02] VITALS: Ht 180.3 cm; Wt 104.5 kg
[2023-03-02 23:10] VITALS: TEMP 100.9
[2023-03-02] MEDS ORDERED: TORS20TA2 PO (23:22)
[2023-03-02] MEDS ORDERED: AMLO1TAB24 PO (23:23)
[2023-03-02 23:38] LABS: BASO # 0.1 10^3/uL (0.0-0.2); BASO % 0.3 % (0.0-1.0); EOS % 0.2 % (0.0-3.0); HEMATOCRIT 42.2 % (42.0-52.0); HEMOGLOBIN 13.4 g/dl (13.5-17.5); LYMPH # 0.5 10^3/uL (1.5-5.0); LYMPH % 2.8 % (24.0-44.0); MEAN CORPUSCULAR HEMOGLOBIN 29.5 pg (27.0-33.0); MEAN CORPUSCULAR HGB CONC 31.8 g/dl (32.0-36.5); MEAN CORPUSCULAR VOLUME 92.7 fl (80.0-96.0); MONO # 1.5 10^3/uL (0.0-0.8); MONO % 8.2 % (2.0-8.0); NEUTROPHILS % 87.9 % (36.0-66.0); PLATELET COUNT, AUTOMATED 324 10^3/uL (150-450); RED BLOOD COUNT 4.55 10^6/uL (4.30-6.10); WHITE BLOOD COUNT 18.3 10^3/uL (4.0-10.0)
[2023-03-03 00:10] LABS: RSV AMPLIFICATION NEGATIVE (NEGATIVE)
[2023-03-03] MEDS ORDERED: dexAMETHasone 20MG/5ML VIAL IV ONE (00:30)
[2023-03-03] MEDS ORDERED: IPRATROPIUM 0.5MG/ALBUTEROL 2.5MG INH SOL UD 3ML (DUONEB) NEB ONE ×2 (00:30→01:30)
[2023-03-03 01:35] LABS: CPK CREATINE PHOSPHOKINASE 74 U/L (46-171)
[2023-03-03 01:36] LABS: ALBUMIN 3.4 G/DL (3.2-5.2); ALKALINE PHOSPHATASE 109 U/L (46-116); ALT/SGPT 16 U/L (7.0-40); AST/SGOT 17 U/L (<34); BILIRUBIN,DIRECT 0.2 MG/DL (<0.4); BILIRUBIN,TOTAL 0.5 MG/DL (0.3-1.2); BLOOD UREA NITROGEN 29 MG/DL (9-23); CALCIUM LEVEL 8.7 MG/DL (8.3-10.6); CARBON DIOXIDE LEVEL 26 MMOL/L (20-31); CHLORIDE LEVEL 100 MMOL/L (98-107); CREATININE FOR GFR 1.63 MG/DL (0.70-1.30); GLOMERULAR FILTRATION RATE 43.4 (>35); GLUCOSE, FASTING 167 MG/DL (74-106); POTASSIUM SERUM 4.6 MMOL/L (3.5-5.1); SODIUM LEVEL 136 MMOL/L (136-145); TOTAL PROTEIN 7.5 G/DL (5.7-8.2)
[2023-03-03] MEDS ORDERED: AZITHROMYCIN INJ 500 MG, VIAL MATE ADAPTER 1 EACH in NS 250 ML IV ONE (01:40)
[2023-03-03] MEDS ORDERED: cefTRIAXone SOD 2 GM in D5W MINI-BAG PLUS 50 ML IV ONE (01:40)
[2023-03-03 01:45] LABS: CK-MB VALUE MASS < 1.0 NG/ML (<3.6); MB/CK RELATIVE INDEX 1.35 (< OR =4)
[2023-03-03 03:20] VITALS: O2SAT 80
[2023-03-03 04:00] VITALS: BP 120/62; O2SAT 89
[2023-03-03] MEDS ORDERED: CEFP200T PO (04:13)
[2023-03-03] MEDS ORDERED: AZIT500T5 PO (04:13)
[2023-03-03] MEDS ORDERED: PRED20TA PO (04:15)
== END 2023-03-03 04:36 | disposition home or self-care (01) ==
LOC: M ED 22:25
DX: J44.1 Chronic obstructive pulmonary disease with (acute) exacerbation (principal); J18.9 Pneumonia, unspecified organism; R06.00 Dyspnea, unspecified; I10 Essential (primary) hypertension; N32.81 Overactive bladder; Z79.899 Other long term (current) drug therapy
CPT/HCPCS: 71046; 80048; 80076; 81001; 82550; 82553; 83605; 83880; 84484; 85025; 87040; 87070; 87077; 87205; 87631; 93005; 94640; 96365; 96367; 96375; 99285; J0456; J0696; J1100

== ENCOUNTER → 2023-05-11 | Outpatient (CLI) | payer MEDICARE, BC ==
[~2023-05-11] MED LIST changes: +AMLO1TAB24 PO; +AZIT500T5 PO; +CEFP200T PO; -OXYB5TAB10 PO; +OXYB5TAB11 PO; +PRED20TA PO; +TORS20TA2 PO
[2023-05-11 13:50] LABS: HEMATOCRIT 41.5 % (42.0-52.0); HEMOGLOBIN 12.7 g/dl (13.5-17.5); MEAN CORPUSCULAR HEMOGLOBIN 29.5 pg (27.0-33.0); MEAN CORPUSCULAR HGB CONC 30.6 g/dl (32.0-36.5); MEAN CORPUSCULAR VOLUME 96.5 fl (80.0-96.0); PLATELET COUNT, AUTOMATED 354 10^3/uL (150-450); WHITE BLOOD COUNT 10.4 10^3/uL (4.0-10.0)
[2023-05-11 14:11] LABS: HEMOGLOBIN A1c 5.8 % (4.0-6.0)
[2023-05-11 14:13] LABS: CREATININE, URINE 47.2 MG/DL; MAU/CREAT RATIO 12.7 MCG/MG (0.0-30.0)
[2023-05-11 14:15] LABS: ALBUMIN 3.3 G/DL (3.2-5.2); ALKALINE PHOSPHATASE 96 U/L (46-116); ALT/SGPT 11 U/L (7.0-40); AST/SGOT 14 U/L (<34); BILIRUBIN,TOTAL 0.5 MG/DL (0.3-1.2); BLOOD UREA NITROGEN 30 MG/DL (9-23); CALCIUM LEVEL 9.5 MG/DL (8.3-10.6); CARBON DIOXIDE LEVEL 38 MMOL/L (20-31); CHLORIDE LEVEL 99 MMOL/L (98-107); CHOLESTEROL LEVEL 252 MG/DL (<200); CHOLESTEROL RISK RATIO 4.07 (<5); CREATININE FOR GFR 2.04 MG/DL (0.70-1.30); GLOMERULAR FILTRATION RATE 33.4 (>35); GLUCOSE, FASTING 134 MG/DL (74-106); HDL CHOLESTEROL 61.8 MG/DL (>40); NON-HDL-C 190.2 MG/DL; POTASSIUM SERUM 4.2 MMOL/L (3.5-5.1); SODIUM LEVEL 142 MMOL/L (136-145); TOTAL PROTEIN 7.4 G/DL (5.7-8.2); TRIGLYCERIDES LEVEL 126 MG/DL (<150)
[2023-05-11 14:16] LABS: TOTAL 25(OH) VITAMIN D 65.1 NG/ML (20.0-100.0)
[2023-05-11 14:17] LABS: FREE T4 1.18 NG/DL (0.89-1.76); THYROID STIMULATING HORMONE 4.868 uIU/ML (0.55-4.78)
[2023-05-11 14:23] LABS: VITAMIN B12 LEVEL > 2000 PG/ML (211-911)
== END ==
LOC: M PLALAB 10:17
PROVIDERS: ATTEND Internal Medicine Hematology
DX: E11.9 Type 2 diabetes mellitus without complications (principal); I50.9 Heart failure, unspecified; J43.9 Emphysema, unspecified; E78.00 Pure hypercholesterolemia, unspecified; Z85.51 Personal history of malignant neoplasm of bladder

== ENCOUNTER → 2023-06-16 | Outpatient (REF) | payer MEDICARE, BC ==
[2023-06-16 16:18] LABS: APPEARANCE, URINE CLEAR (CLEAR); BACTERIA, URINE AUTO NEGATIVE (NEGATIVE); BILIRUBIN, URINE AUTO NEGATIVE (NEGATIVE); BLOOD, URINE BLOOD 2+ (NEGATIVE); COLOR, URINE STRAW (YELLOW); GLUCOSE, URINE (UA) AUTO NEGATIVE (NEGATIVE); KETONE, URINE AUTO NEGATIVE (NEGATIVE); LEUKOCYTE ESTERASE, URINE AUTO NEGATIVE (NEGATIVE); NITRITE, URINE AUTO NEGATIVE (NEGATIVE); PROTEIN, URINE AUTO NEGATIVE (NEGATIVE); RBC, URINE AUTO 10 /HPF (0-3); SPECIFIC GRAVITY URINE AUTO 1.009 (1.002-1.035); SQUAMOUS EPITHELIAL CELL UR AU 0 /HPF (0-6); UROBILINOGEN, URINE AUTO 0.2 mg/dL (0.0-2.0); WBC, URINE AUTO 0 /HPF (0-3)
== END ==
LOC: M SMT 15:30
PROVIDERS: ATTEND Urology
DX: Z85.51 Personal history of malignant neoplasm of bladder (principal)

== ENCOUNTER 2023-07-19 12:11 | Inpatient (IN) | payer MEDICARE, BC ==
[~2023-07-19] VITALS: Ht 185.4 cm; Wt 97.0 kg
[2023-07-19] MEDS: DOCUSATE SODIUM 100MG CAPSULE PO SCH ×2 (09:00→21:56)
[~2023-07-19 12:11] MED LIST changes: +ACET1TAB55 PO; +AMOX500T2 PO; -FLUT1BLS8; +FLUT1BLS8 INH; -FLUT50SP17 NARES; +FLUTISP NARES; +IPRA0.00 NEB; +MONT10TA97 PO; +PRED10TA2 PO; +SYMB16INH INH; +TIOT18INH INH
[2023-07-19] MEDS ORDERED: oxyBUTYnin 5 MG TAB PO PRN (13:25)
[2023-07-19] MEDS ORDERED: ONDANSETRON 4MG TAB PO PRN (13:35)
[2023-07-19] MEDS ORDERED: ACETAMINOPHEN TAB 650MG DOSE (2X325MG) PO PRN (13:35)
[2023-07-19 13:45] VITALS: BP 155/74; TEMP 97.6; O2SAT 93
[2023-07-19] MEDS: amLODIPine 5 MG TAB PO SCH (14:30)
[2023-07-19] MEDS: IPRATROPIUM 0.5MG/ALBUTEROL 2.5MG INH SOL UD 3ML (DUONEB) NEB SCH ×2 (14:39→20:27)
[2023-07-19] MEDS ORDERED: ENOXAPARIN 30MG/0.3ML SYRINGE (J1650 PER 10MG) SC SCH (18:00)
[2023-07-19 20:00] VITALS: BP 165/56; TEMP 97.8; O2SAT 99
[2023-07-19] MEDS: ADVAIR HFA 230/21MCG INHALER INH SCH (20:27)
[2023-07-19] MEDS: AUGMENTIN 500MG TAB PO SCH (21:57)
[2023-07-20] VITALS (7 sets, daily range): BP systolic 127–170; BP diastolic 60–84; TEMP 98.4–99.1; O2SAT 90–96
[2023-07-20] MEDS: IPRATROPIUM 0.5MG/ALBUTEROL 2.5MG INH SOL UD 3ML (DUONEB) NEB SCH ×4 (00:45→19:16)
[2023-07-20 06:29] LABS: BASO % 0.1 % (0.0-1.0); HEMATOCRIT 29.1 % (42.0-52.0); HEMOGLOBIN 9.6 g/dl (13.5-17.5); LYMPH # 0.8 10^3/uL (1.5-5.0); LYMPH % 3.8 % (24.0-44.0); MEAN CORPUSCULAR HEMOGLOBIN 29.3 pg (27.0-33.0); MEAN CORPUSCULAR VOLUME 88.7 fl (80.0-96.0); MONO % 7.9 % (2.0-8.0); NEUTROPHILS # 19.3 10^3/uL (1.5-8.5); NEUTROPHILS % 86.7 % (36.0-66.0); PLATELET COUNT, AUTOMATED 324 10^3/uL (150-450); RED BLOOD COUNT 3.28 10^6/uL (4.30-6.10); WHITE BLOOD COUNT 22.3 10^3/uL (4.0-10.0)
[2023-07-20 06:52] LABS: CREATININE FOR GFR 4.02 MG/DL (0.70-1.30); GLOMERULAR FILTRATION RATE 15.3 (>35); POTASSIUM SERUM 3.3 MMOL/L (3.5-5.1)
[2023-07-20] MEDS: ADVAIR HFA 230/21MCG INHALER INH SCH ×2 (07:13→19:16)
[2023-07-20] MEDS: TIOTROPIUM INHALER/CAPSULE (SPIRIVA) INH SCH (07:13)
[2023-07-20] MEDS ORDERED: POTASSIUM CHLORIDE 10MEQ SR TABLET PO ONE ×2 (07:15→07:45)
[2023-07-20 07:41] LABS: MONO # 1.8 10^3/uL (0.0-0.8)
[2023-07-20] MEDS ORDERED: UNRESOLVED CLARIFICATION ENTRY XX SCH (08:43)
[2023-07-20] MEDS: DOCUSATE SODIUM 100MG CAPSULE PO SCH ×2 (09:00→21:11)
[2023-07-20] MEDS: FLUTICASONE PROP 0.05% NASAL SPRAY 16 GM (FLONASE) NARES SCH (09:19)
[2023-07-20] MEDS: AUGMENTIN 500MG TAB PO SCH ×2 (09:20→21:11)
[2023-07-20] MEDS: TAMSULOSIN 0.4 MG CAP PO SCH (09:21)
[2023-07-20] MEDS: MONTELUKAST 10 MG TAB PO SCH (09:21)
[2023-07-20] MEDS: amLODIPine 5 MG TAB PO SCH (09:21)
[2023-07-20] MEDS: predniSONE 10MG TAB PO SCH (09:21)
[2023-07-20] MEDS ORDERED: FLUZONE HIGH DOSE(65YR UP)QUAD/PF 240MCG/0.7ML SYRINGE IM.IMMUN ONE (12:00)
[2023-07-20] MEDS ORDERED: IPRATROPIUM 0.5MG/ALBUTEROL 2.5MG INH SOL UD 3ML (DUONEB) NEB SCH (14:00)
[2023-07-20] MEDS ORDERED: ADVAIR HFA 230/21MCG INHALER INH SCH (14:15)
[2023-07-20] MEDS ORDERED: MONTELUKAST 10 MG TAB PO SCH (14:15)
[2023-07-20] MEDS ORDERED: AUGMENTIN 500MG TAB PO SCH (14:15)
[2023-07-20] MEDS ORDERED: FLUTICASONE PROP 0.05% NASAL SPRAY 16 GM (FLONASE) NARES SCH (14:15)
[2023-07-20] MEDS ORDERED: predniSONE 10MG TAB PO SCH (14:15)
[2023-07-20] MEDS ORDERED: amLODIPine 5 MG TAB PO SCH (14:15)
[2023-07-20] MEDS ORDERED: VITAMIN D 1,000 INTERNATIONAL UNITS TABLET PO SCH (14:15)
[2023-07-20] MEDS ORDERED: TIOTROPIUM INHALER/CAPSULE (SPIRIVA) INH SCH (14:15)
[2023-07-20] MEDS ORDERED: oxyBUTYnin 5 MG TAB PO PRN (14:15)
[2023-07-20] MEDS ORDERED: TAMSULOSIN 0.4 MG CAP PO SCH (14:15)
[2023-07-20] MEDS: NYSTATIN 500,000U/5ML SUSP UDC SS SCH ×2 (17:00→21:11)
[2023-07-20] MEDS: HEPARIN SOD (PORCINE) 5000UNITS/ML 1ML VIAL/SYRINGE SQ SCH (21:11)
[2023-07-21] MEDS: IPRATROPIUM 0.5MG/ALBUTEROL 2.5MG INH SOL UD 3ML (DUONEB) NEB SCH ×4 (01:22→20:04)
[2023-07-21 05:08] VITALS: BP 142/70; TEMP 98.2; O2SAT 94
[2023-07-21] MEDS: HEPARIN SOD (PORCINE) 5000UNITS/ML 1ML VIAL/SYRINGE SQ SCH ×3 (05:14→20:52)
[2023-07-21] MEDS: TIOTROPIUM INHALER/CAPSULE (SPIRIVA) INH SCH (07:34)
[2023-07-21] MEDS: ADVAIR HFA 230/21MCG INHALER INH SCH ×2 (07:34→20:04)
[2023-07-21] MEDS: DOCUSATE SODIUM 100MG CAPSULE PO SCH ×2 (09:00→20:53)
[2023-07-21] MEDS ORDERED: NORCO, ANEXSIA 5/325MG TABLET (HYDROcodone/ACETAMINOPHEN) PO PRN (09:15)
[2023-07-21] MEDS ORDERED: traMADol 50 MG TAB PO PRN (09:15)
[2023-07-21 09:40] VITALS: BP 142/70; TEMP 98.2; O2SAT 94
[2023-07-21] MEDS: NYSTATIN 500,000U/5ML SUSP UDC SS SCH ×4 (11:00→20:51)
[2023-07-21] MEDS: predniSONE 10MG TAB PO SCH (11:00)
[2023-07-21] MEDS: VITAMIN D 1,000 INTERNATIONAL UNITS TABLET PO SCH (11:01)
[2023-07-21] MEDS: amLODIPine 5 MG TAB PO SCH (11:01)
[2023-07-21] MEDS: AUGMENTIN 500MG TAB PO SCH ×2 (11:01→20:51)
[2023-07-21] MEDS: TAMSULOSIN 0.4 MG CAP PO SCH (11:02)
[2023-07-21] MEDS: ACETAMINOPHEN TAB 650MG DOSE (2X325MG) PO SCH ×4 (11:02→20:52)
[2023-07-21] MEDS: FLUTICASONE PROP 0.05% NASAL SPRAY 16 GM (FLONASE) NARES SCH (11:02)
[2023-07-21] MEDS: MONTELUKAST 10 MG TAB PO SCH (11:02)
[2023-07-21 14:00] VITALS: BP 151/67; TEMP 98.2; O2SAT 94
[2023-07-21 20:00] VITALS: BP 149/65; TEMP 98.2; O2SAT 98
[2023-07-22] MEDS: IPRATROPIUM 0.5MG/ALBUTEROL 2.5MG INH SOL UD 3ML (DUONEB) NEB SCH ×4 (01:22→20:51)
[2023-07-22] MEDS: HEPARIN SOD (PORCINE) 5000UNITS/ML 1ML VIAL/SYRINGE SQ SCH ×3 (05:07→20:43)
[2023-07-22 06:00] VITALS: BP 140/67; TEMP 98.6; O2SAT 92
[2023-07-22] MEDS: ADVAIR HFA 230/21MCG INHALER INH SCH ×2 (07:02→20:51)
[2023-07-22] MEDS: TIOTROPIUM INHALER/CAPSULE (SPIRIVA) INH SCH (07:02)
[2023-07-22 07:46] LABS: HEMATOCRIT 29.8 % (42.0-52.0); HEMOGLOBIN 9.6 g/dl (13.5-17.5); MEAN CORPUSCULAR HEMOGLOBIN 29.1 pg (27.0-33.0); MEAN CORPUSCULAR HGB CONC 32.2 g/dl (32.0-36.5); MEAN CORPUSCULAR VOLUME 90.3 fl (80.0-96.0); PLATELET COUNT, AUTOMATED 317 10^3/uL (150-450); WHITE BLOOD COUNT 22.5 10^3/uL (4.0-10.0)
[2023-07-22] MEDS: MONTELUKAST 10 MG TAB PO SCH (08:06)
[2023-07-22] MEDS: TAMSULOSIN 0.4 MG CAP PO SCH (08:06)
[2023-07-22] MEDS: amLODIPine 5 MG TAB PO SCH (08:07)
[2023-07-22] MEDS: predniSONE 10MG TAB PO SCH (08:07)
[2023-07-22] MEDS: ACETAMINOPHEN TAB 650MG DOSE (2X325MG) PO SCH ×4 (08:07→20:43)
[2023-07-22] MEDS: NYSTATIN 500,000U/5ML SUSP UDC SS SCH ×4 (08:08→20:43)
[2023-07-22] MEDS: FLUTICASONE PROP 0.05% NASAL SPRAY 16 GM (FLONASE) NARES SCH (08:08)
[2023-07-22] MEDS: DOCUSATE SODIUM 100MG CAPSULE PO SCH ×2 (08:08→20:42)
[2023-07-22 08:14] LABS: ALBUMIN 2.2 G/DL (3.2-5.2); CALCIUM LEVEL 8.6 MG/DL (8.3-10.6); CREATININE FOR GFR 3.34 MG/DL (0.70-1.30); GLOMERULAR FILTRATION RATE 18.9 (>35); PHOSPHORUS LEVEL 4.7 MG/DL (2.4-5.1); POTASSIUM SERUM 3.9 MMOL/L (3.5-5.1)
[2023-07-22] MEDS ORDERED: FUROSEMIDE 20MG/2ML VIAL IV ONE (13:00)
[2023-07-22 14:00] VITALS: BP 146/67; TEMP 98.2; O2SAT 91
[2023-07-22 20:00] VITALS: BP 136/62; TEMP 99; O2SAT 86
[2023-07-23] MEDS: IPRATROPIUM 0.5MG/ALBUTEROL 2.5MG INH SOL UD 3ML (DUONEB) NEB SCH ×4 (02:39→20:21)
[2023-07-23] MEDS: HEPARIN SOD (PORCINE) 5000UNITS/ML 1ML VIAL/SYRINGE SQ SCH ×3 (05:55→20:51)
[2023-07-23 06:00] VITALS: BP 138/65; TEMP 98.2; O2SAT 95
[2023-07-23] MEDS: TIOTROPIUM INHALER/CAPSULE (SPIRIVA) INH SCH (07:35)
[2023-07-23] MEDS: ADVAIR HFA 230/21MCG INHALER INH SCH ×2 (07:36→20:21)
[2023-07-23] MEDS: VITAMIN D 1,000 INTERNATIONAL UNITS TABLET PO SCH (08:34)
[2023-07-23] MEDS: TAMSULOSIN 0.4 MG CAP PO SCH (08:34)
[2023-07-23] MEDS: amLODIPine 5 MG TAB PO SCH (08:35)
[2023-07-23] MEDS: predniSONE 10MG TAB PO SCH (08:35)
[2023-07-23] MEDS: ACETAMINOPHEN TAB 650MG DOSE (2X325MG) PO SCH ×4 (08:36→20:52)
[2023-07-23] MEDS: MONTELUKAST 10 MG TAB PO SCH (08:36)
[2023-07-23] MEDS: NYSTATIN 500,000U/5ML SUSP UDC SS SCH ×4 (08:36→20:52)
[2023-07-23] MEDS: FLUTICASONE PROP 0.05% NASAL SPRAY 16 GM (FLONASE) NARES SCH (08:36)
[2023-07-23] MEDS: DOCUSATE SODIUM 100MG CAPSULE PO SCH ×2 (08:37→20:50)
[2023-07-23] MEDS ORDERED: TORSEMIDE (DEMADEX) 50 MG PER 1/2 TAB PO ONE (15:00)
[2023-07-23 18:50] LABS: CALCIUM LEVEL 8.7 MG/DL (8.3-10.6); CREATININE FOR GFR 3.44 MG/DL (0.70-1.30); GLOMERULAR FILTRATION RATE 18.3 (>35); POTASSIUM SERUM 3.8 MMOL/L (3.5-5.1)
[2023-07-23 20:00] VITALS: BP 144/64; TEMP 98.4; O2SAT 97
[2023-07-24] MEDS: IPRATROPIUM 0.5MG/ALBUTEROL 2.5MG INH SOL UD 3ML (DUONEB) NEB SCH ×4 (02:00→20:58)
[2023-07-24] MEDS: HEPARIN SOD (PORCINE) 5000UNITS/ML 1ML VIAL/SYRINGE SQ SCH ×3 (05:31→21:25)
[2023-07-24 06:00] VITALS: BP 142/70; TEMP 98.2; O2SAT 95
[2023-07-24] MEDS: amLODIPine 5 MG TAB PO SCH (07:29)
[2023-07-24] MEDS: predniSONE 10MG TAB PO SCH (07:29)
[2023-07-24] MEDS: MONTELUKAST 10 MG TAB PO SCH (07:29)
[2023-07-24] MEDS: NYSTATIN 500,000U/5ML SUSP UDC SS SCH ×4 (07:29→20:26)
[2023-07-24] MEDS: DOCUSATE SODIUM 100MG CAPSULE PO SCH ×2 (07:29→20:26)
[2023-07-24] MEDS: ACETAMINOPHEN TAB 650MG DOSE (2X325MG) PO SCH ×4 (07:29→20:26)
[2023-07-24] MEDS: FLUTICASONE PROP 0.05% NASAL SPRAY 16 GM (FLONASE) NARES SCH (07:30)
[2023-07-24] MEDS: TAMSULOSIN 0.4 MG CAP PO SCH (07:33)
[2023-07-24 07:59] LABS: CALCIUM LEVEL 8.9 MG/DL (8.3-10.6); CREATININE FOR GFR 3.45 MG/DL (0.70-1.30); GLOMERULAR FILTRATION RATE 18.2 (>35); POTASSIUM SERUM 3.7 MMOL/L (3.5-5.1)
[2023-07-24] MEDS: ADVAIR HFA 230/21MCG INHALER INH SCH ×2 (08:05→20:58)
[2023-07-24] MEDS: TIOTROPIUM INHALER/CAPSULE (SPIRIVA) INH SCH (08:05)
[2023-07-24] MEDS ORDERED: TORSEMIDE (DEMADEX) 50 MG PER 1/2 TAB PO SCH (09:00)
[2023-07-24 14:00] VITALS: BP 140/70; TEMP 98; O2SAT 93
[2023-07-24 20:00] VITALS: BP 139/63; TEMP 98.8; O2SAT 94
[2023-07-25] MEDS: IPRATROPIUM 0.5MG/ALBUTEROL 2.5MG INH SOL UD 3ML (DUONEB) NEB SCH ×4 (02:00→21:16)
[2023-07-25 06:00] VITALS: BP 144/86; TEMP 99; O2SAT 93
[2023-07-25] MEDS: ADVAIR HFA 230/21MCG INHALER INH SCH ×2 (08:29→21:17)
[2023-07-25] MEDS: TIOTROPIUM INHALER/CAPSULE (SPIRIVA) INH SCH (08:29)
[2023-07-25] MEDS: DOCUSATE SODIUM 100MG CAPSULE PO SCH ×2 (09:00→19:15)
[2023-07-25 09:37] LABS: HEMATOCRIT 31.1 % (42.0-52.0); HEMOGLOBIN 9.7 g/dl (13.5-17.5); MEAN CORPUSCULAR HEMOGLOBIN 29.1 pg (27.0-33.0); MEAN CORPUSCULAR HGB CONC 31.2 g/dl (32.0-36.5); MEAN CORPUSCULAR VOLUME 93.4 fl (80.0-96.0); PLATELET COUNT, AUTOMATED 301 10^3/uL (150-450); RED BLOOD COUNT 3.33 10^6/uL (4.30-6.10); WHITE BLOOD COUNT 20.3 10^3/uL (4.0-10.0)
[2023-07-25] MEDS: VITAMIN D 1,000 INTERNATIONAL UNITS TABLET PO SCH (09:53)
[2023-07-25] MEDS: MONTELUKAST 10 MG TAB PO SCH (09:53)
[2023-07-25] MEDS: NYSTATIN 500,000U/5ML SUSP UDC SS SCH ×2 (09:53→12:21)
[2023-07-25] MEDS: TAMSULOSIN 0.4 MG CAP PO SCH (09:54)
[2023-07-25] MEDS: FLUTICASONE PROP 0.05% NASAL SPRAY 16 GM (FLONASE) NARES SCH (09:55)
[2023-07-25] MEDS: predniSONE 10MG TAB PO SCH (09:55)
[2023-07-25] MEDS: ACETAMINOPHEN TAB 650MG DOSE (2X325MG) PO SCH ×4 (09:55→20:53)
[2023-07-25] MEDS: amLODIPine 5 MG TAB PO SCH (09:55)
[2023-07-25 10:08] LABS: CALCIUM LEVEL 8.6 MG/DL (8.3-10.6); CREATININE FOR GFR 3.18 MG/DL (0.70-1.30); POTASSIUM SERUM 3.4 MMOL/L (3.5-5.1)
[2023-07-25 14:00] VITALS: BP 115/55; TEMP 97.9; O2SAT 98
[2023-07-25 20:00] VITALS: BP 111/53; TEMP 98.7; O2SAT 97
[2023-07-25] MEDS: POTASSIUM CHLORIDE 10MEQ SR TABLET PO SCH (20:53)
[2023-07-25] MEDS: HEPARIN SOD (PORCINE) 5000UNITS/ML 1ML VIAL/SYRINGE SQ SCH (21:45)
[2023-07-26] MEDS: IPRATROPIUM 0.5MG/ALBUTEROL 2.5MG INH SOL UD 3ML (DUONEB) NEB SCH ×4 (01:02→20:22)
[2023-07-26 06:00] VITALS: BP 134/71; TEMP 99; O2SAT 95
[2023-07-26] MEDS: ADVAIR HFA 230/21MCG INHALER INH SCH ×2 (07:36→20:21)
[2023-07-26] MEDS: TIOTROPIUM INHALER/CAPSULE (SPIRIVA) INH SCH (07:36)
[2023-07-26] MEDS: ACETAMINOPHEN TAB 650MG DOSE (2X325MG) PO SCH ×4 (08:52→20:03)
[2023-07-26] MEDS: MONTELUKAST 10 MG TAB PO SCH (08:52)
[2023-07-26] MEDS: POTASSIUM CHLORIDE 10MEQ SR TABLET PO SCH ×2 (08:52→20:02)
[2023-07-26] MEDS: TAMSULOSIN 0.4 MG CAP PO SCH (08:52)
[2023-07-26 08:53] VITALS: BP 129/64
[2023-07-26] MEDS: amLODIPine 5 MG TAB PO SCH (08:53)
[2023-07-26] MEDS: DOCUSATE SODIUM 100MG CAPSULE PO SCH ×2 (08:53→20:03)
[2023-07-26] MEDS: predniSONE 10MG TAB PO SCH (08:53)
[2023-07-26] MEDS: FLUTICASONE PROP 0.05% NASAL SPRAY 16 GM (FLONASE) NARES SCH (08:54)
[2023-07-26] MEDS ORDERED: DARBEPOETIN 100MCG/0.5ML *NON-DIALYSIS* SYRINGE SC SCH (09:00)
[2023-07-26 14:00] VITALS: BP 113/54; TEMP 98; O2SAT 92
[2023-07-26 20:00] VITALS: BP 118/57; TEMP 98.4; O2SAT 93
[2023-07-27] MEDS: IPRATROPIUM 0.5MG/ALBUTEROL 2.5MG INH SOL UD 3ML (DUONEB) NEB SCH ×4 (00:35→19:34)
[2023-07-27 06:00] VITALS: BP 139/65; TEMP 99.2; O2SAT 92
[2023-07-27 06:02] LABS: ALBUMIN 2.4 G/DL (3.2-5.2); CALCIUM LEVEL 8.3 MG/DL (8.3-10.6); CREATININE FOR GFR 2.81 MG/DL (0.70-1.30); GLOMERULAR FILTRATION RATE 23.1 (>35); PHOSPHORUS LEVEL 4.6 MG/DL (2.4-5.1); POTASSIUM SERUM 3.7 MMOL/L (3.5-5.1)
[2023-07-27] MEDS: TIOTROPIUM INHALER/CAPSULE (SPIRIVA) INH SCH (07:22)
[2023-07-27] MEDS: ADVAIR HFA 230/21MCG INHALER INH SCH ×2 (07:22→19:31)
[2023-07-27] MEDS: ACETAMINOPHEN TAB 650MG DOSE (2X325MG) PO SCH ×4 (08:25→21:57)
[2023-07-27] MEDS: amLODIPine 5 MG TAB PO SCH (08:26)
[2023-07-27] MEDS: predniSONE 10MG TAB PO SCH (08:26)
[2023-07-27] MEDS: MONTELUKAST 10 MG TAB PO SCH (08:26)
[2023-07-27] MEDS: TAMSULOSIN 0.4 MG CAP PO SCH (08:26)
[2023-07-27] MEDS: VITAMIN D 1,000 INTERNATIONAL UNITS TABLET PO SCH (08:26)
[2023-07-27] MEDS: FLUTICASONE PROP 0.05% NASAL SPRAY 16 GM (FLONASE) NARES SCH (08:27)
[2023-07-27] MEDS: DOCUSATE SODIUM 100MG CAPSULE PO SCH ×2 (08:27→21:00)
[2023-07-27] MEDS ORDERED: FLUZONE HIGH DOSE(65YR UP)QUAD/PF 240MCG/0.7ML SYRINGE IM.IMMUN ONE (09:15)
[2023-07-27 14:00] VITALS: BP 120/62; TEMP 97.4; O2SAT 91
[2023-07-27] MEDS: HEPARIN SOD (PORCINE) 5000UNITS/ML 1ML VIAL/SYRINGE SQ SCH ×2 (14:17→21:58)
[2023-07-27] MEDS ORDERED: PRED10TA2 PO (18:28)
[2023-07-27 20:20] VITALS: BP 149/68; TEMP 98.2; O2SAT 88
[2023-07-28] MEDS: IPRATROPIUM 0.5MG/ALBUTEROL 2.5MG INH SOL UD 3ML (DUONEB) NEB SCH ×2 (02:00→07:56)
[2023-07-28 05:45] VITALS: BP 148/63; TEMP 97.7; O2SAT 85
[2023-07-28] MEDS: HEPARIN SOD (PORCINE) 5000UNITS/ML 1ML VIAL/SYRINGE SQ SCH ×2 (06:06→13:29)
[2023-07-28 06:48] LABS: HEMATOCRIT 29.9 % (42.0-52.0); HEMOGLOBIN 9.3 g/dl (13.5-17.5); MEAN CORPUSCULAR HGB CONC 31.1 g/dl (32.0-36.5); MEAN CORPUSCULAR VOLUME 93.1 fl (80.0-96.0); PLATELET COUNT, AUTOMATED 249 10^3/uL (150-450); RED BLOOD COUNT 3.21 10^6/uL (4.30-6.10); WHITE BLOOD COUNT 17.8 10^3/uL (4.0-10.0)
[2023-07-28 07:27] LABS: CALCIUM LEVEL 8.3 MG/DL (8.3-10.6); CREATININE FOR GFR 2.56 MG/DL (0.70-1.30); GLOMERULAR FILTRATION RATE 25.7 (>35); POTASSIUM SERUM 3.7 MMOL/L (3.5-5.1)
[2023-07-28] MEDS: TIOTROPIUM INHALER/CAPSULE (SPIRIVA) INH SCH (07:56)
[2023-07-28] MEDS: ADVAIR HFA 230/21MCG INHALER INH SCH (07:56)
[2023-07-28] MEDS ORDERED: NYST-38 PO (08:27)
[2023-07-28] MEDS: ACETAMINOPHEN TAB 650MG DOSE (2X325MG) PO SCH ×2 (08:42→13:00)
[2023-07-28] MEDS: predniSONE 10MG TAB PO SCH (08:42)
[2023-07-28] MEDS: TAMSULOSIN 0.4 MG CAP PO SCH (08:42)
[2023-07-28] MEDS: amLODIPine 5 MG TAB PO SCH (08:42)
[2023-07-28] MEDS: FLUTICASONE PROP 0.05% NASAL SPRAY 16 GM (FLONASE) NARES SCH (08:42)
[2023-07-28] MEDS: DOCUSATE SODIUM 100MG CAPSULE PO SCH (08:43)
[2023-07-28] MEDS: MONTELUKAST 10 MG TAB PO SCH (08:43)
[2023-07-28] MEDS: NYSTATIN 500,000U/5ML SUSP UDC PO SCH ×2 (08:48→13:00)
[2023-07-28 14:00] VITALS: BP 124/59; TEMP 98.9; O2SAT 94
== END 2023-07-28 14:50 | disposition home health service (06) | DRG 73 ==
LOC: M PM&R 13:45
PROVIDERS: ADMIT Physical Medicine & Rehabilitation; ATTEND Physical Medicine & Rehabilitation
DX: G62.81 Critical illness polyneuropathy (principal); J96.21 Acute and chronic respiratory failure with hypoxia; N17.9 Acute kidney failure, unspecified; N13.30 Unspecified hydronephrosis; I13.0 Hypertensive heart and chronic kidney disease with heart failure and stage 1 through stage 4 chronic kidney disease, or unspecified chronic kidney disease; B37.0 Candidal stomatitis; E87.6 Hypokalemia; E78.00 Pure hypercholesterolemia, unspecified; T83.032A Leakage of nephrostomy catheter, initial encounter; J43.9 Emphysema, unspecified; E87.8 Other disorders of electrolyte and fluid balance, not elsewhere classified; J84.10 Pulmonary fibrosis, unspecified; I50.9 Heart failure, unspecified; J44.9 Chronic obstructive pulmonary disease, unspecified; Z66 Do not resuscitate; R73.01 Impaired fasting glucose; N18.30 Chronic kidney disease, stage 3 unspecified; N40.0 Benign prostatic hyperplasia without lower urinary tract symptoms; E55.9 Vitamin D deficiency, unspecified; Z74.1 Need for assistance with personal care; Z74.09 Other reduced mobility; Z79.2 Long term (current) use of antibiotics; Z79.52 Long term (current) use of systemic steroids; Z79.899 Other long term (current) drug therapy; Z20.822 Contact with and (suspected) exposure to COVID-19; Z99.81 Dependence on supplemental oxygen; Z85.51 Personal history of malignant neoplasm of bladder; Z87.891 Personal history of nicotine dependence; I25.2 Old myocardial infarction; Z90.49 Acquired absence of other specified parts of digestive tract

== ENCOUNTER → 2023-08-23 | Outpatient (CLI) | payer MEDICARE, BC ==
[~2023-08-23] MED LIST changes: +FLUT50BL IH; +IPRA0.00 INH; +NYST-38 PO; +VENTAER INH
[2023-08-23 17:54] LABS: ALBUMIN 2.4 G/DL (3.2-5.2); ALKALINE PHOSPHATASE 72 U/L (46-116); ALT/SGPT 20 U/L (7.0-40); AST/SGOT 23 U/L (<34); BILIRUBIN,TOTAL 0.3 MG/DL (0.3-1.2); BLOOD UREA NITROGEN 60 MG/DL (9-23); CALCIUM LEVEL 8.9 MG/DL (8.3-10.6); CARBON DIOXIDE LEVEL > 40.0 MMOL/L (20-31); CHLORIDE LEVEL 92 MMOL/L (98-107); CREATININE FOR GFR 2.93 MG/DL (0.70-1.30); GLUCOSE, FASTING 138 MG/DL (74-106); POTASSIUM SERUM 3.7 MMOL/L (3.5-5.1); SODIUM LEVEL 137 MMOL/L (136-145); TOTAL PROTEIN 6.5 G/DL (5.7-8.2)
[2023-08-23 17:57] LABS: HEMATOCRIT 34.2 % (42.0-52.0); HEMOGLOBIN 10.6 g/dl (13.5-17.5); MEAN CORPUSCULAR VOLUME 93.4 fl (80.0-96.0); PLATELET COUNT, AUTOMATED 357 10^3/uL (150-450); RED BLOOD COUNT 3.66 10^6/uL (4.30-6.10); WHITE BLOOD COUNT 15.6 10^3/uL (4.0-10.0)
== END ==
LOC: M LAB 16:50
PROVIDERS: ATTEND Urology
DX: N28.89 Other specified disorders of kidney and ureter (principal)

== ENCOUNTER 2023-08-24 15:53 | Inpatient (IN) | payer MEDICARE, BC ==
[~2023-08-24] VITALS: Ht 180.3 cm; Wt 84.8 kg
[~2023-08-24 15:53] MED LIST changes: -FLUT50BL IH; -IPRA0.00 INH; -VENTAER INH
[2023-08-24] MEDS ORDERED: VENTAER INH (16:58)
[2023-08-24] MEDS ORDERED: CHLO125TA PO (16:58)
[2023-08-24] MEDS ORDERED: TORS20TA2 PO (16:58)
[2023-08-24 17:14] LABS: BASO # 0.1 10^3/uL (0.0-0.2); BASO % 0.4 % (0.0-1.0); EOS # 0.2 10^3/uL (0.0-0.5); EOS % 1.3 % (0.0-3.0); HEMATOCRIT 32.8 % (42.0-52.0); HEMOGLOBIN 10.1 g/dl (13.5-17.5); LYMPH # 0.9 10^3/uL (1.5-5.0); LYMPH % 5.4 % (24.0-44.0); MEAN CORPUSCULAR HGB CONC 30.8 g/dl (32.0-36.5); MEAN CORPUSCULAR VOLUME 94.3 fl (80.0-96.0); MONO # 1.2 10^3/uL (0.0-0.8); MONO % 7.8 % (2.0-8.0); NEUTROPHILS # 13.2 10^3/uL (1.5-8.5); NEUTROPHILS % 84.5 % (36.0-66.0); PLATELET COUNT, AUTOMATED 349 10^3/uL (150-450); RED BLOOD COUNT 3.48 10^6/uL (4.30-6.10); WHITE BLOOD COUNT 15.7 10^3/uL (4.0-10.0)
[2023-08-24 17:24] LABS: ALBUMIN 2.3 G/DL (3.2-5.2); ALKALINE PHOSPHATASE 70 U/L (46-116); ALT/SGPT 19 U/L (7.0-40); AST/SGOT 24 U/L (<34); BILIRUBIN,DIRECT 0.1 MG/DL (<0.4); BILIRUBIN,TOTAL 0.3 MG/DL (0.3-1.2); BLOOD UREA NITROGEN 55 MG/DL (9-23); CALCIUM LEVEL 8.8 MG/DL (8.3-10.6); CARBON DIOXIDE LEVEL 40 MMOL/L (20-31); CHLORIDE LEVEL 92 MMOL/L (98-107); CK-MB VALUE MASS < 1.0 NG/ML (<3.6); CREATININE FOR GFR 2.87 MG/DL (0.70-1.30); GLOMERULAR FILTRATION RATE 22.6 (>35); GLUCOSE, FASTING 148 MG/DL (74-106); POTASSIUM SERUM 3.6 MMOL/L (3.5-5.1); SODIUM LEVEL 133 MMOL/L (136-145); TOTAL PROTEIN 6.5 G/DL (5.7-8.2)
[2023-08-24 17:27] LABS: THYROID STIMULATING HORMONE 3.812 uIU/ML (0.55-4.78)
[2023-08-24 17:30] LABS: CPK CREATINE PHOSPHOKINASE 20 U/L (46-171)
[2023-08-24] MEDS ORDERED: FUROSEMIDE 40MG/4ML VIAL IV ONE ×2 (19:05→21:40)
[2023-08-24] MEDS ORDERED: CEFEPIME HCL 2 GM in D5W MINI-BAG PLUS 50 ML IV ONE (19:05)
[2023-08-24] MEDS ORDERED: FLUT50BL IH (20:32)
[2023-08-24] MEDS ORDERED: IPRA0.00 INH (20:34)
[2023-08-24] MEDS ORDERED: HOME MED LIST COMPLETE! XX SCH (20:50)
[2023-08-24 21:08] LABS: APPEARANCE, URINE CLOUDY (CLEAR); BACTERIA, URINE AUTO NEGATIVE (NEGATIVE); BILIRUBIN, URINE AUTO NEGATIVE (NEGATIVE); BLOOD, URINE BLOOD 2+ (NEGATIVE); COLOR, URINE YELLOW (YELLOW); GLUCOSE, URINE (UA) AUTO NEGATIVE (NEGATIVE); KETONE, URINE AUTO NEGATIVE (NEGATIVE); LEUKOCYTE ESTERASE, URINE AUTO 3+ (NEGATIVE); MUCUS, URINE SMALL (NEGATIVE); NITRITE, URINE AUTO NEGATIVE (NEGATIVE); PROTEIN, URINE AUTO 2+ mg/dL (NEGATIVE); RBC, URINE AUTO 34 /HPF (0-3); SPECIFIC GRAVITY URINE AUTO 1.009 (1.002-1.035); SQUAMOUS EPITHELIAL CELL UR AU 0 /HPF (0-6); UROBILINOGEN, URINE AUTO 0.2 mg/dL (0.0-2.0); WBC, URINE AUTO TNTC /HPF (0-3)
[2023-08-24 21:55] LABS: PROCALCITONIN 0.59 ng/ml
[2023-08-24] MEDS: amLODIPine 5 MG TAB PO SCH (21:57)
[2023-08-24] MEDS: DOXYCYCLINE HYCLATE 100MG TABLET PO SCH (23:16)
[2023-08-25] VITALS (27 sets, daily range): BP systolic 94–144; BP diastolic 53–60; TEMP 97.5–98.4; O2SAT 87–100
[2023-08-25] MEDS: IPRATROPIUM 0.5MG/ALBUTEROL 2.5MG INH SOL UD 3ML (DUONEB) NEB SCH ×4 (01:19→19:05)
[2023-08-25] MEDS ORDERED: CEFEPIME HCL 2 GM in D5W MINI-BAG PLUS 50 ML IV SCH (04:00)
[2023-08-25 05:32] LABS: HEMATOCRIT 30.7 % (42.0-52.0); HEMOGLOBIN 9.6 g/dl (13.5-17.5); MEAN CORPUSCULAR HEMOGLOBIN 28.7 pg (27.0-33.0); MEAN CORPUSCULAR HGB CONC 31.3 g/dl (32.0-36.5); MEAN CORPUSCULAR VOLUME 91.9 fl (80.0-96.0); PLATELET COUNT, AUTOMATED 320 10^3/uL (150-450); RED BLOOD COUNT 3.34 10^6/uL (4.30-6.10); WHITE BLOOD COUNT 15.8 10^3/uL (4.0-10.0)
[2023-08-25 05:50] LABS: BLOOD UREA NITROGEN 53 MG/DL (9-23); CALCIUM LEVEL 8.6 MG/DL (8.3-10.6); CARBON DIOXIDE LEVEL > 40.0 MMOL/L (20-31); CHLORIDE LEVEL 94 MMOL/L (98-107); CREATININE FOR GFR 2.88 MG/DL (0.70-1.30); GLOMERULAR FILTRATION RATE 22.5 (>35); GLUCOSE, FASTING 128 MG/DL (74-106); MAGNESIUM LEVEL 1.5 MG/DL (1.8-2.4); PHOSPHORUS LEVEL 4.3 MG/DL (2.4-5.1); POTASSIUM SERUM 3.3 MMOL/L (3.5-5.1); SODIUM LEVEL 139 MMOL/L (136-145)
[2023-08-25] MEDS: HEPARIN SOD (PORCINE) 5000UNITS/ML 1ML VIAL/SYRINGE SQ SCH ×3 (06:09→22:37)
[2023-08-25] MEDS: FUROSEMIDE 40MG/4ML VIAL IV SCH ×2 (06:10→17:53)
[2023-08-25] MEDS: ADVAIR HFA 230/21MCG INHALER INH SCH ×2 (07:30→19:05)
[2023-08-25] MEDS ORDERED: SODIUM CHLORIDE NASAL 0.65% SPRAY BTL (OCEAN) PRN (07:55)
[2023-08-25] MEDS ORDERED: CHLORTHALIDONE 12.5MG PER 1/2 TABLET PO SCH (09:00)
[2023-08-25] MEDS ORDERED: MAG SULF 1GM/100ML (MAG RUN) 1 GM in IV 1 EA IV ONE (09:00)
[2023-08-25] MEDS: SODIUM CHLORIDE NASAL 0.65% SPRAY BTL (OCEAN) SCH ×3 (09:00→20:24)
[2023-08-25] MEDS ORDERED: POTASSIUM CHLORIDE 10MEQ SR TABLET PO ONE ×2 (09:00→18:05)
[2023-08-25] MEDS: DOXYCYCLINE HYCLATE 100MG TABLET PO SCH ×2 (09:45→20:22)
[2023-08-25] MEDS: VITAMIN D 1,000 INTERNATIONAL UNITS TABLET PO SCH (09:45)
[2023-08-25] MEDS: TAMSULOSIN 0.4 MG CAP PO SCH (09:45)
[2023-08-25] MEDS: MONTELUKAST 10 MG TAB PO SCH (09:45)
[2023-08-25] MEDS: CEFEPIME HCL 1 GM in D5W MINI-BAG PLUS 50 ML IV SCH ×2 (09:46→20:24)
[2023-08-25] MEDS: FLUTICASONE PROP 0.05% NASAL SPRAY 16 GM (FLONASE) NARES SCH ×2 (10:02→22:37)
[2023-08-25] MEDS: amLODIPine 5 MG TAB PO SCH (20:22)
[2023-08-26] VITALS (16 sets, daily range): BP systolic 97–110; BP diastolic 50–60; TEMP 97.5–98.7; O2SAT 83–100
[2023-08-26] MEDS: IPRATROPIUM 0.5MG/ALBUTEROL 2.5MG INH SOL UD 3ML (DUONEB) NEB SCH ×4 (01:15→19:25)
[2023-08-26] MEDS: HEPARIN SOD (PORCINE) 5000UNITS/ML 1ML VIAL/SYRINGE SQ SCH ×3 (05:19→21:26)
[2023-08-26 06:14] LABS: HEMATOCRIT 30.4 % (42.0-52.0); HEMOGLOBIN 9.3 g/dl (13.5-17.5); MEAN CORPUSCULAR HGB CONC 30.6 g/dl (32.0-36.5); MEAN CORPUSCULAR VOLUME 94.7 fl (80.0-96.0); PLATELET COUNT, AUTOMATED 325 10^3/uL (150-450); RED BLOOD COUNT 3.21 10^6/uL (4.30-6.10); WHITE BLOOD COUNT 14.1 10^3/uL (4.0-10.0)
[2023-08-26 06:47] LABS: BLOOD UREA NITROGEN 50 MG/DL (9-23); CALCIUM LEVEL 9.2 MG/DL (8.3-10.6); CARBON DIOXIDE LEVEL > 40.0 MMOL/L (20-31); CHLORIDE LEVEL 95 MMOL/L (98-107); CREATININE FOR GFR 2.94 MG/DL (0.70-1.30); GLOMERULAR FILTRATION RATE 21.9 (>35); GLUCOSE, FASTING 142 MG/DL (74-106); MAGNESIUM LEVEL 1.7 MG/DL (1.8-2.4); PHOSPHORUS LEVEL 3.9 MG/DL (2.4-5.1); POTASSIUM SERUM 3.9 MMOL/L (3.5-5.1); SODIUM LEVEL 137 MMOL/L (136-145)
[2023-08-26] MEDS: ADVAIR HFA 230/21MCG INHALER INH SCH ×2 (07:08→19:25)
[2023-08-26] MEDS: CEFEPIME HCL 1 GM in D5W MINI-BAG PLUS 50 ML IV SCH ×2 (09:11→20:25)
[2023-08-26] MEDS: FLUTICASONE PROP 0.05% NASAL SPRAY 16 GM (FLONASE) NARES SCH ×2 (09:11→20:25)
[2023-08-26] MEDS: DOXYCYCLINE HYCLATE 100MG TABLET PO SCH ×2 (09:12→20:25)
[2023-08-26] MEDS: FUROSEMIDE 100MG/10ML VIAL IV SCH ×2 (09:12)
[2023-08-26] MEDS: TAMSULOSIN 0.4 MG CAP PO SCH (09:12)
[2023-08-26] MEDS: MONTELUKAST 10 MG TAB PO SCH (09:12)
[2023-08-26] MEDS: SODIUM CHLORIDE NASAL 0.65% SPRAY BTL (OCEAN) SCH ×3 (09:13→20:26)
[2023-08-26] MEDS: TORSEMIDE 20 MG TAB PO SCH (16:44)
[2023-08-26] MEDS: amLODIPine 5 MG TAB PO SCH (20:25)
[2023-08-27] VITALS (7 sets, daily range): BP systolic 90–104; BP diastolic 52–60; TEMP 98.1–98.8; O2SAT 91–96
[2023-08-27] MEDS: IPRATROPIUM 0.5MG/ALBUTEROL 2.5MG INH SOL UD 3ML (DUONEB) NEB SCH ×4 (01:08→19:37)
[2023-08-27] MEDS: HEPARIN SOD (PORCINE) 5000UNITS/ML 1ML VIAL/SYRINGE SQ SCH ×3 (05:40→21:22)
[2023-08-27] MEDS: CEFEPIME HCL 1 GM in D5W MINI-BAG PLUS 50 ML IV SCH (07:55)
[2023-08-27] MEDS: ADVAIR HFA 230/21MCG INHALER INH SCH ×2 (08:09→19:37)
[2023-08-27 08:50] LABS: HEMATOCRIT 28.7 % (42.0-52.0); HEMOGLOBIN 8.9 g/dl (13.5-17.5); MEAN CORPUSCULAR HEMOGLOBIN 29.5 pg (27.0-33.0); PLATELET COUNT, AUTOMATED 320 10^3/uL (150-450); RED BLOOD COUNT 3.02 10^6/uL (4.30-6.10); WHITE BLOOD COUNT 12.8 10^3/uL (4.0-10.0)
[2023-08-27 09:10] LABS: ALBUMIN 1.9 G/DL (3.2-5.2); CALCIUM LEVEL 8.9 MG/DL (8.3-10.6); CREATININE FOR GFR 3.11 MG/DL (0.70-1.30); GLOMERULAR FILTRATION RATE 20.6 (>35); PHOSPHORUS LEVEL 4.1 MG/DL (2.4-5.1)
[2023-08-27] MEDS: SODIUM CHLORIDE NASAL 0.65% SPRAY BTL (OCEAN) SCH ×3 (09:28→21:21)
[2023-08-27] MEDS: FLUTICASONE PROP 0.05% NASAL SPRAY 16 GM (FLONASE) NARES SCH ×2 (09:28→21:21)
[2023-08-27] MEDS: VITAMIN D 1,000 INTERNATIONAL UNITS TABLET PO SCH (09:28)
[2023-08-27] MEDS: TORSEMIDE 20 MG TAB PO SCH ×2 (09:29→16:56)
[2023-08-27] MEDS: DOXYCYCLINE HYCLATE 100MG TABLET PO SCH ×2 (09:29→21:21)
[2023-08-27] MEDS: MONTELUKAST 10 MG TAB PO SCH (09:29)
[2023-08-27] MEDS: TAMSULOSIN 0.4 MG CAP PO SCH (09:29)
[2023-08-27] MEDS: amLODIPine 5 MG TAB PO SCH (21:00)
[2023-08-27] MEDS ORDERED: CEFDINIR 300 MG CAP (OMNICEF) PO SCH (21:00)
[2023-08-27] MEDS: CEFDINIR 300 MG CAP (OMNICEF) PO SCH (21:21)
[2023-08-28] MEDS: IPRATROPIUM 0.5MG/ALBUTEROL 2.5MG INH SOL UD 3ML (DUONEB) NEB SCH ×4 (02:00→19:39)
[2023-08-28 05:19] VITALS: BP 92/55; TEMP 100.5; TEMP 101.5; O2SAT 93
[2023-08-28] MEDS: HEPARIN SOD (PORCINE) 5000UNITS/ML 1ML VIAL/SYRINGE SQ SCH ×3 (05:39→21:11)
[2023-08-28 05:47] VITALS: BP 110/70; TEMP 99.1
[2023-08-28 06:44] LABS: ALBUMIN 1.9 G/DL (3.2-5.2); BLOOD UREA NITROGEN 57 MG/DL (9-23); CALCIUM LEVEL 9.1 MG/DL (8.3-10.6); CARBON DIOXIDE LEVEL > 40.0 MMOL/L (20-31); CHLORIDE LEVEL 93 MMOL/L (98-107); CREATININE FOR GFR 3.33 MG/DL (0.70-1.30); GLUCOSE, FASTING 134 MG/DL (74-106); POTASSIUM SERUM 4.3 MMOL/L (3.5-5.1); SODIUM LEVEL 138 MMOL/L (136-145)
[2023-08-28] MEDS: ADVAIR HFA 230/21MCG INHALER INH SCH ×2 (07:24→19:39)
[2023-08-28] MEDS: TORSEMIDE 20 MG TAB PO SCH (08:38)
[2023-08-28] MEDS: MONTELUKAST 10 MG TAB PO SCH (08:38)
[2023-08-28] MEDS: DOXYCYCLINE HYCLATE 100MG TABLET PO SCH ×2 (08:38→20:10)
[2023-08-28] MEDS: TAMSULOSIN 0.4 MG CAP PO SCH (08:38)
[2023-08-28] MEDS: FLUTICASONE PROP 0.05% NASAL SPRAY 16 GM (FLONASE) NARES SCH ×2 (08:39→20:12)
[2023-08-28] MEDS: SODIUM CHLORIDE NASAL 0.65% SPRAY BTL (OCEAN) SCH ×3 (08:39→20:12)
[2023-08-28 19:31] VITALS: O2SAT 96
[2023-08-28 20:00] VITALS: O2SAT 94
[2023-08-28] MEDS: CEFDINIR 300 MG CAP (OMNICEF) PO SCH (20:10)
[2023-08-28] MEDS: amLODIPine 5 MG TAB PO SCH (21:10)
[2023-08-29] MEDS: IPRATROPIUM 0.5MG/ALBUTEROL 2.5MG INH SOL UD 3ML (DUONEB) NEB SCH ×4 (01:47→19:45)
[2023-08-29 05:17] VITALS: BP 100/53; TEMP 99; O2SAT 93
[2023-08-29] MEDS: HEPARIN SOD (PORCINE) 5000UNITS/ML 1ML VIAL/SYRINGE SQ SCH ×3 (05:47→21:21)
[2023-08-29] MEDS: ADVAIR HFA 230/21MCG INHALER INH SCH ×2 (07:21→19:45)
[2023-08-29] MEDS: VITAMIN D 1,000 INTERNATIONAL UNITS TABLET PO SCH (08:36)
[2023-08-29] MEDS: DOXYCYCLINE HYCLATE 100MG TABLET PO SCH (08:36)
[2023-08-29] MEDS: TAMSULOSIN 0.4 MG CAP PO SCH (08:36)
[2023-08-29] MEDS: MONTELUKAST 10 MG TAB PO SCH (08:36)
[2023-08-29] MEDS: TORSEMIDE 20 MG TAB PO SCH ×2 (08:45→09:00)
[2023-08-29] MEDS: FLUTICASONE PROP 0.05% NASAL SPRAY 16 GM (FLONASE) NARES SCH ×2 (10:04→21:17)
[2023-08-29] MEDS: SODIUM CHLORIDE NASAL 0.65% SPRAY BTL (OCEAN) SCH ×3 (10:04→21:17)
[2023-08-29 19:43] VITALS: O2SAT 98
[2023-08-29] MEDS ORDERED: ACETAMINOPHEN TAB 650MG DOSE (2X325MG) PO PRN (20:35)
[2023-08-29] MEDS: CEFDINIR 300 MG CAP (OMNICEF) PO SCH (21:18)
[2023-08-29] MEDS: amLODIPine 5 MG TAB PO SCH (21:21)
[2023-08-30] MEDS: IPRATROPIUM 0.5MG/ALBUTEROL 2.5MG INH SOL UD 3ML (DUONEB) NEB SCH ×4 (02:00→20:09)
[2023-08-30] MEDS: HEPARIN SOD (PORCINE) 5000UNITS/ML 1ML VIAL/SYRINGE SQ SCH ×3 (05:18→20:50)
[2023-08-30 06:00] VITALS: BP 95/50; TEMP 97.5; O2SAT 94
[2023-08-30 07:13] LABS: HEMATOCRIT 29.8 % (42.0-52.0); HEMOGLOBIN 9.1 g/dl (13.5-17.5); MEAN CORPUSCULAR HEMOGLOBIN 28.9 pg (27.0-33.0); MEAN CORPUSCULAR HGB CONC 30.5 g/dl (32.0-36.5); MEAN CORPUSCULAR VOLUME 94.6 fl (80.0-96.0); PLATELET COUNT, AUTOMATED 285 10^3/uL (150-450); RED BLOOD COUNT 3.15 10^6/uL (4.30-6.10); WHITE BLOOD COUNT 13.4 10^3/uL (4.0-10.0)
[2023-08-30 07:58] LABS: CALCIUM LEVEL 8.8 MG/DL (8.3-10.6); CREATININE FOR GFR 3.17 MG/DL (0.70-1.30); GLOMERULAR FILTRATION RATE 20.1 (>35); PHOSPHORUS LEVEL 5.1 MG/DL (2.4-5.1)
[2023-08-30 08:15] VITALS: O2SAT 95
[2023-08-30] MEDS: ADVAIR HFA 230/21MCG INHALER INH SCH ×2 (08:16→20:11)
[2023-08-30] MEDS: MONTELUKAST 10 MG TAB PO SCH (08:24)
[2023-08-30] MEDS: TAMSULOSIN 0.4 MG CAP PO SCH (08:24)
[2023-08-30] MEDS: FLUTICASONE PROP 0.05% NASAL SPRAY 16 GM (FLONASE) NARES SCH ×2 (08:25→20:51)
[2023-08-30] MEDS: SODIUM CHLORIDE NASAL 0.65% SPRAY BTL (OCEAN) SCH ×3 (08:25→20:50)
[2023-08-30] MEDS: TORSEMIDE 20 MG TAB PO SCH (08:31)
[2023-08-30 15:08] LABS: BODY FLUID CULTURE Not indicated. (.); LEGIONELLA ANTIGEN URINE Negative (Negative); ORGANISM ID Not indicated. (.); SPECIMEN SOURCE Urine (.); URINE STREP PNEUMONIAE ANTIGEN Negative (Negative)
[2023-08-30 20:08] VITALS: O2SAT 95
[2023-08-30] MEDS: CEFDINIR 300 MG CAP (OMNICEF) PO SCH (20:49)
[2023-08-30] MEDS: amLODIPine 5 MG TAB PO SCH (20:50)
[2023-08-31] MEDS: IPRATROPIUM 0.5MG/ALBUTEROL 2.5MG INH SOL UD 3ML (DUONEB) NEB SCH ×4 (01:50→19:41)
[2023-08-31] MEDS: HEPARIN SOD (PORCINE) 5000UNITS/ML 1ML VIAL/SYRINGE SQ SCH ×3 (05:28→22:27)
[2023-08-31 05:29] VITALS: BP 97/53; TEMP 99; O2SAT 93
[2023-08-31] MEDS: ADVAIR HFA 230/21MCG INHALER INH SCH ×2 (07:59→19:41)
[2023-08-31 08:00] VITALS: O2SAT 90
[2023-08-31] MEDS: TORSEMIDE 20 MG TAB PO SCH (09:00)
[2023-08-31] MEDS: VITAMIN D 1,000 INTERNATIONAL UNITS TABLET PO SCH (09:35)
[2023-08-31] MEDS: FLUTICASONE PROP 0.05% NASAL SPRAY 16 GM (FLONASE) NARES SCH ×2 (09:36→21:06)
[2023-08-31] MEDS: SODIUM CHLORIDE NASAL 0.65% SPRAY BTL (OCEAN) SCH ×3 (09:36→21:06)
[2023-08-31] MEDS: TAMSULOSIN 0.4 MG CAP PO SCH (09:36)
[2023-08-31] MEDS: MONTELUKAST 10 MG TAB PO SCH (09:36)
[2023-08-31 13:38] VITALS: O2SAT 90
[2023-08-31] MEDS ORDERED: CEFD300CAP PO (14:25)
[2023-08-31] MEDS: CEFDINIR 300 MG CAP (OMNICEF) PO SCH (21:05)
[2023-08-31 21:06] VITALS: BP 106/53
[2023-08-31] MEDS: amLODIPine 5 MG TAB PO SCH (21:06)
[2023-09-01] MEDS: IPRATROPIUM 0.5MG/ALBUTEROL 2.5MG INH SOL UD 3ML (DUONEB) NEB SCH ×2 (01:22→07:32)
[2023-09-01 05:47] VITALS: BP 100/53; TEMP 98.8; O2SAT 94
[2023-09-01] MEDS: HEPARIN SOD (PORCINE) 5000UNITS/ML 1ML VIAL/SYRINGE SQ SCH (06:08)
[2023-09-01] MEDS: ADVAIR HFA 230/21MCG INHALER INH SCH (07:32)
[2023-09-01] MEDS: MONTELUKAST 10 MG TAB PO SCH (08:32)
[2023-09-01] MEDS: TAMSULOSIN 0.4 MG CAP PO SCH (08:32)
[2023-09-01] MEDS: FLUTICASONE PROP 0.05% NASAL SPRAY 16 GM (FLONASE) NARES SCH (08:32)
[2023-09-01] MEDS: SODIUM CHLORIDE NASAL 0.65% SPRAY BTL (OCEAN) SCH (08:33)
[2023-09-01] MEDS: TORSEMIDE 20 MG TAB PO SCH (08:39)
[2023-09-01 08:44] VITALS: BP 94/42
[2023-09-01] MEDS ORDERED: MIDO10TA PO (08:52)
[2023-09-01] MEDS ORDERED: SELF1KIT MC (08:52)
[2023-09-01] MEDS ORDERED: MIDODRINE 5 MG TAB PO ONE (09:00)
[2023-09-01 09:46] VITALS: BP 108/50
== END 2023-09-01 10:30 | disposition home health service (06) | DRG 291 ==
LOC: M ED 15:53 → M ED INP 21:04 → M PCU 08-25 03:14 → M MS5PR 08-26 14:10
PROVIDERS: ADMIT Internal Medicine; ATTEND General Practice
PROC: B246ZZZ Ultrasonography of Right and Left Heart (ICD-10-PCS; principal; 2023-08-26)
DX: I13.0 Hypertensive heart and chronic kidney disease with heart failure and stage 1 through stage 4 chronic kidney disease, or unspecified chronic kidney disease (principal); J96.21 Acute and chronic respiratory failure with hypoxia; I50.33 Acute on chronic diastolic (congestive) heart failure; J18.9 Pneumonia, unspecified organism; N18.4 Chronic kidney disease, stage 4 (severe); N17.9 Acute kidney failure, unspecified; E87.3 Alkalosis; E87.1 Hypo-osmolality and hyponatremia; N13.30 Unspecified hydronephrosis; E46 Unspecified protein-calorie malnutrition; J44.0 Chronic obstructive pulmonary disease with (acute) lower respiratory infection; Z66 Do not resuscitate; E78.5 Hyperlipidemia, unspecified; E87.6 Hypokalemia; I25.10 Atherosclerotic heart disease of native coronary artery without angina pectoris; I50.810 Right heart failure, unspecified; J43.9 Emphysema, unspecified; N40.0 Benign prostatic hyperplasia without lower urinary tract symptoms; E83.42 Hypomagnesemia; R26.89 Other abnormalities of gait and mobility; I27.20 Pulmonary hypertension, unspecified; R73.01 Impaired fasting glucose; D63.1 Anemia in chronic kidney disease; Z85.51 Personal history of malignant neoplasm of bladder; Z87.891 Personal history of nicotine dependence; Z99.81 Dependence on supplemental oxygen; Z79.899 Other long term (current) drug therapy; Z20.822 Contact with and (suspected) exposure to COVID-19

== ENCOUNTER → 2023-09-05 | Outpatient (REF) | payer MEDICARE, BC ==
[~2023-09-05] MED LIST changes: +CEFD300CAP PO; +FLUT50BL IH; +IPRA0.00 INH; +MIDO10TA PO; +SELF1KIT MC; +VENTAER INH
[2023-09-05 16:44] LABS: APPEARANCE, URINE TURBID (CLEAR); BACTERIA, URINE AUTO NEGATIVE (NEGATIVE); BILIRUBIN, URINE AUTO NEGATIVE (NEGATIVE); BLOOD, URINE BLOOD 2+ (NEGATIVE); COLOR, URINE YELLOW (YELLOW); GLUCOSE, URINE (UA) AUTO NEGATIVE (NEGATIVE); KETONE, URINE AUTO NEGATIVE (NEGATIVE); LEUKOCYTE ESTERASE, URINE AUTO 3+ (NEGATIVE); NITRITE, URINE AUTO NEGATIVE (NEGATIVE); PROTEIN, URINE AUTO 2+ mg/dL (NEGATIVE); RBC, URINE AUTO 53 /HPF (0-3); SPECIFIC GRAVITY URINE AUTO 1.012 (1.002-1.035); SQUAMOUS EPITHELIAL CELL UR AU 1 /HPF (0-6); UROBILINOGEN, URINE AUTO 0.2 mg/dL (0.0-2.0); WBC, URINE AUTO TNTC /HPF (0-3)
== END ==
LOC: M SMT 15:35
PROVIDERS: ATTEND Urology
DX: N39.0 Urinary tract infection, site not specified (principal)

== ENCOUNTER 2023-09-28 11:55 | Inpatient (IN) | payer MEDICARE, BC ==
[~2023-09-28] VITALS: Ht 180.3 cm; Wt 80.2 kg
[~2023-09-28 11:55] MED LIST changes: -OXYB5TAB11 PO; +OXYB5TAB14 PO
[2023-09-28 13:20] LABS: BASO % 0.2 % (0.0-1.0); EOS # 0.3 10^3/uL (0.0-0.5); EOS % 1.7 % (0.0-3.0); HEMATOCRIT 30.5 % (42.0-52.0); HEMOGLOBIN 9.4 g/dl (13.5-17.5); LYMPH # 0.7 10^3/uL (1.5-5.0); LYMPH % 4.5 % (24.0-44.0); MEAN CORPUSCULAR HEMOGLOBIN 29.1 pg (27.0-33.0); MEAN CORPUSCULAR HGB CONC 30.8 g/dl (32.0-36.5); MEAN CORPUSCULAR VOLUME 94.4 fl (80.0-96.0); MONO # 1.2 10^3/uL (0.0-0.8); MONO % 7.7 % (2.0-8.0); NEUTROPHILS # 13.8 10^3/uL (1.5-8.5); NEUTROPHILS % 85.4 % (36.0-66.0); PLATELET COUNT, AUTOMATED 378 10^3/uL (150-450); RED BLOOD COUNT 3.23 10^6/uL (4.30-6.10); WHITE BLOOD COUNT 16.2 10^3/uL (4.0-10.0)
[2023-09-28 13:44] LABS: CPK CREATINE PHOSPHOKINASE < 15 U/L (46-171)
[2023-09-28 13:45] LABS: ALBUMIN 2.1 G/DL (3.2-5.2); ALKALINE PHOSPHATASE 62 U/L (46-116); ALT/SGPT < 9 U/L (7.0-40); AST/SGOT 14 U/L (<34); BILIRUBIN,DIRECT 0.1 MG/DL (<0.4); BILIRUBIN,TOTAL 0.3 MG/DL (0.3-1.2); BLOOD UREA NITROGEN 49 MG/DL (9-23); CALCIUM LEVEL 9.1 MG/DL (8.3-10.6); CARBON DIOXIDE LEVEL 38 MMOL/L (20-31); CHLORIDE LEVEL 97 MMOL/L (98-107); CK-MB VALUE MASS < 1.0 NG/ML (<3.6); CREATININE FOR GFR 2.03 MG/DL (0.70-1.30); GLOMERULAR FILTRATION RATE 33.6 (>35); GLUCOSE, FASTING 121 MG/DL (74-106); POTASSIUM SERUM 4.2 MMOL/L (3.5-5.1); SODIUM LEVEL 137 MMOL/L (136-145); TOTAL PROTEIN 7.6 G/DL (5.7-8.2)
[2023-09-28 13:48] LABS: THYROXINE (T4) 7.1 UG/DL (4.5-10.9)
[2023-09-28 13:49] LABS: THYROID STIMULATING HORMONE 2.484 uIU/ML (0.55-4.78)
[2023-09-28 13:58] LABS: PROCALCITONIN 0.61 ng/ml
[2023-09-28 14:24] LABS: CPK CREATINE PHOSPHOKINASE < 15 U/L (46-171)
[2023-09-28 14:30] LABS: CK-MB VALUE MASS 1.1 NG/ML (<3.6)
[2023-09-28] MEDS: cefTRIAXone SOD 2 GM in D5W MINI-BAG PLUS 50 ML IV ONE (15:40)
[2023-09-28 18:16] LABS: INR 1.14; PROTHROMBIN TIME 14.3 SECONDS (12.5-14.5)
[2023-09-28 18:22] LABS: ABG BASE EXCESS 9.6 (-2.0-2.0); ABG HCO3 35.6 MMOL/L (22.0-26.0); ABG O2 SATURATION 96.2 % (95.0-99.0); ABG PARTIAL PRESSURE CO2 56.6 mmHg (35.0-45.0); ABG PARTIAL PRESSURE O2 73.2 mmHg (75.0-100.0); ABG STANDARD HCO3 33.3 MMOL/L. (22.0-26.0); ABG TOTAL CO2 37.3 MMOL/L (23.0-31.0); ABG pH (ARTERIAL) 7.416 UNITS (7.350-7.450)
[2023-09-28] MEDS: COMBIVENT RESPIMAT 100-20MCG INHALER 4GM INH SCH (19:15)
[2023-09-28] MEDS: ADVAIR HFA 115/21MCG INHALER INH SCH (19:15)
[2023-09-28] MEDS ORDERED: ACET-897 PO (19:42)
[2023-09-28] MEDS ORDERED: med rec comment (19:49)
[2023-09-28] MEDS: CEFEPIME HCL 2 GM in D5W MINI-BAG PLUS 50 ML IV SCH (20:00)
[2023-09-28] MEDS ORDERED: HOME MED LIST COMPLETE! XX SCH (20:05)
[2023-09-28] MEDS: DOXYCYCLINE HYCLATE 100 MG in D5W MINI-BAG PLUS 100 ML IV ONE (21:05)
[2023-09-28 21:21] VITALS: BP 129/59; TEMP 98.5; O2SAT 95
[2023-09-28] MEDS: REMDESIVIR 200 MG in NS 250 ML IV ONE (23:03)
[2023-09-28 23:27] VITALS: BP 100/60; TEMP 97.5; O2SAT 96
[2023-09-28 23:53] VITALS: O2SAT 96
[2023-09-29] VITALS (22 sets, daily range): BP systolic 109–141; BP diastolic 56–68; TEMP 96.3–98.1; O2SAT 82–100
[2023-09-29] MEDS: HEPARIN SOD (PORCINE) 5000UNITS/ML 1ML VIAL/SYRINGE SC SCH (05:39)
[2023-09-29 06:07] LABS: HEMATOCRIT 27.7 % (42.0-52.0); HEMOGLOBIN 8.4 g/dl (13.5-17.5); MEAN CORPUSCULAR HEMOGLOBIN 28.5 pg (27.0-33.0); MEAN CORPUSCULAR HGB CONC 30.3 g/dl (32.0-36.5); MEAN CORPUSCULAR VOLUME 93.9 fl (80.0-96.0); PLATELET COUNT, AUTOMATED 335 10^3/uL (150-450); RED BLOOD COUNT 2.95 10^6/uL (4.30-6.10); WHITE BLOOD COUNT 12.6 10^3/uL (4.0-10.0)
[2023-09-29 06:18] LABS: CALCIUM LEVEL 8.5 MG/DL (8.3-10.6); CREATININE FOR GFR 1.96 MG/DL (0.70-1.30); MAGNESIUM LEVEL 1.5 MG/DL (1.8-2.4); POTASSIUM SERUM 4.3 MMOL/L (3.5-5.1)
[2023-09-29] MEDS: TIOTROPIUM INHALER/CAPSULE (SPIRIVA) INH SCH (07:51)
[2023-09-29] MEDS: MAG SULF 1GM/100ML (MAG RUN) 1 GM in IV 1 EA IV SCH (08:03)
[2023-09-29] MEDS: FLUTICASONE PROP 0.05% NASAL SPRAY 16 GM (FLONASE) NARES SCH (09:00)
[2023-09-29] MEDS: MONTELUKAST 10 MG TAB PO SCH (10:56)
[2023-09-29] MEDS: TORSEMIDE 20 MG TAB PO SCH (10:56)
[2023-09-29] MEDS: TAMSULOSIN 0.4 MG CAP PO SCH (10:56)
[2023-09-29] MEDS ORDERED: ISOVUE-300 61% 100ML VIAL As Ordered ONE (15:37)
[2023-09-29] MEDS ORDERED: LIDOCAINE 1% MDV 20ML VIAL As Ordered ONE (15:37)
[2023-09-29] MEDS: amLODIPine 5 MG TAB PO SCH (21:00)
[2023-09-29] MEDS: REMDESIVIR 100 MG in NS 250 ML IV SCH (22:37)
[2023-09-30] VITALS (13 sets, daily range): BP systolic 115–140; BP diastolic 56–70; TEMP 98–98.4; O2SAT 93–100
[2023-09-30 08:03] LABS: BASO % 0.3 % (0.0-1.0); HEMATOCRIT 27.9 % (42.0-52.0); HEMOGLOBIN 8.5 g/dl (13.5-17.5); LYMPH # 0.5 10^3/uL (1.5-5.0); LYMPH % 4.3 % (24.0-44.0); MEAN CORPUSCULAR HEMOGLOBIN 28.5 pg (27.0-33.0); MEAN CORPUSCULAR HGB CONC 30.5 g/dl (32.0-36.5); MEAN CORPUSCULAR VOLUME 93.6 fl (80.0-96.0); MONO % 7.9 % (2.0-8.0); NEUTROPHILS # 10.5 10^3/uL (1.5-8.5); PLATELET COUNT, AUTOMATED 337 10^3/uL (150-450); RED BLOOD COUNT 2.98 10^6/uL (4.30-6.10)
[2023-09-30 08:30] LABS: CREATININE FOR GFR 1.99 MG/DL (0.70-1.30); GLOMERULAR FILTRATION RATE 34.4 (>35); POTASSIUM SERUM 4.7 MMOL/L (3.5-5.1)
[2023-10-01] VITALS (8 sets, daily range): BP systolic 101–112; BP diastolic 56–66; TEMP 97.3–97.7; O2SAT 88–99
[2023-10-01 06:05] LABS: BASO # 0.1 10^3/uL (0.0-0.2); BASO % 0.5 % (0.0-1.0); EOS # 0.3 10^3/uL (0.0-0.5); EOS % 2.5 % (0.0-3.0); HEMATOCRIT 29.6 % (42.0-52.0); HEMOGLOBIN 8.8 g/dl (13.5-17.5); LYMPH # 1.1 10^3/uL (1.5-5.0); LYMPH % 8.9 % (24.0-44.0); MEAN CORPUSCULAR HEMOGLOBIN 28.1 pg (27.0-33.0); MEAN CORPUSCULAR HGB CONC 29.7 g/dl (32.0-36.5); MEAN CORPUSCULAR VOLUME 94.6 fl (80.0-96.0); MONO # 1.3 10^3/uL (0.0-0.8); MONO % 10.1 % (2.0-8.0); NEUTROPHILS # 9.8 10^3/uL (1.5-8.5); NEUTROPHILS % 77.5 % (36.0-66.0); PLATELET COUNT, AUTOMATED 334 10^3/uL (150-450); RED BLOOD COUNT 3.13 10^6/uL (4.30-6.10); WHITE BLOOD COUNT 12.6 10^3/uL (4.0-10.0)
[2023-10-01 06:28] LABS: CREATININE FOR GFR 2.15 MG/DL (0.70-1.30); GLOMERULAR FILTRATION RATE 31.5 (>35); POTASSIUM SERUM 4.4 MMOL/L (3.5-5.1)
[2023-10-02 02:07] VITALS: BP 109/55; TEMP 97.7; O2SAT 97
[2023-10-02 05:08] VITALS: BP 124/73; TEMP 97.7; O2SAT 97
[2023-10-02 06:22] LABS: BASO % 0.3 % (0.0-1.0); HEMATOCRIT 27.8 % (42.0-52.0); HEMOGLOBIN 8.5 g/dl (13.5-17.5); LYMPH # 0.9 10^3/uL (1.5-5.0); LYMPH % 5.7 % (24.0-44.0); MEAN CORPUSCULAR HEMOGLOBIN 28.6 pg (27.0-33.0); MEAN CORPUSCULAR HGB CONC 30.6 g/dl (32.0-36.5); MEAN CORPUSCULAR VOLUME 93.6 fl (80.0-96.0); MONO # 1.4 10^3/uL (0.0-0.8); NEUTROPHILS # 13.1 10^3/uL (1.5-8.5); NEUTROPHILS % 84.4 % (36.0-66.0); PLATELET COUNT, AUTOMATED 334 10^3/uL (150-450); RED BLOOD COUNT 2.97 10^6/uL (4.30-6.10); WHITE BLOOD COUNT 15.5 10^3/uL (4.0-10.0)
[2023-10-02 06:44] LABS: CALCIUM LEVEL 8.5 MG/DL (8.3-10.6); CREATININE FOR GFR 2.44 MG/DL (0.70-1.30); GLOMERULAR FILTRATION RATE 27.2 (>35); POTASSIUM SERUM 4.8 MMOL/L (3.5-5.1)
[2023-10-02 14:00] VITALS: BP 120/63; TEMP 97.3; O2SAT 98
[2023-10-02] MEDS: FOSFOMYCIN TROMETHAMINE 3 GM POWDER PACKET (MONUROL) PO ONE (14:35)
[2023-10-02 21:00] VITALS: BP 108/61
[2023-10-02 21:48] VITALS: BP 108/61; TEMP 97.3; O2SAT 96
[2023-10-03] VITALS (9 sets, daily range): BP systolic 92–113; BP diastolic 58–61; TEMP 96.8–97.5; O2SAT 77–98
[2023-10-03] MEDS: LevoFLOXacin 750 MG TABLET PO SCH (05:28)
[2023-10-03 06:10] LABS: BASO # 0.1 10^3/uL (0.0-0.2); BASO % 0.3 % (0.0-1.0); EOS % 0.1 % (0.0-3.0); HEMATOCRIT 28.9 % (42.0-52.0); HEMOGLOBIN 8.5 g/dl (13.5-17.5); LYMPH # 1.4 10^3/uL (1.5-5.0); MEAN CORPUSCULAR HEMOGLOBIN 27.8 pg (27.0-33.0); MEAN CORPUSCULAR HGB CONC 29.4 g/dl (32.0-36.5); MEAN CORPUSCULAR VOLUME 94.4 fl (80.0-96.0); MONO # 1.8 10^3/uL (0.0-0.8); MONO % 9.1 % (2.0-8.0); NEUTROPHILS # 16.1 10^3/uL (1.5-8.5); NEUTROPHILS % 82.7 % (36.0-66.0); PLATELET COUNT, AUTOMATED 339 10^3/uL (150-450); RED BLOOD COUNT 3.06 10^6/uL (4.30-6.10); WHITE BLOOD COUNT 19.4 10^3/uL (4.0-10.0)
[2023-10-03 06:52] LABS: CALCIUM LEVEL 8.6 MG/DL (8.3-10.6); CREATININE FOR GFR 2.54 MG/DL (0.70-1.30); POTASSIUM SERUM 4.3 MMOL/L (3.5-5.1)
[2023-10-03] MEDS ORDERED: LORazepam 2 MG/ML 1ML VIAL IV PRN (16:30)
[2023-10-03] MEDS ORDERED: MORPHINE 2 MG/ML 1ML VIAL IV PRN (16:30)
[2023-10-03] MEDS ORDERED: COMBIVENT RESPIMAT 100-20MCG INHALER 4GM INH PRN (16:30)
[2023-10-03] MEDS ORDERED: SCOPOLAMINE 1MG TRANSDERMAL PATCH TOP PRN (16:30)
[2023-10-04] MEDS ORDERED: ATIV1TAB10 PO (11:03)
[2023-10-04] MEDS ORDERED: MORP1SOL5 PO (11:03)
[2023-10-04] MEDS ORDERED: HYOS125TA PO (11:03)
[2023-10-04] MEDS ORDERED: MORPHINE 10MG/0.5ML ORAL CONCENTRATE SOLUTION U/D SL PRN (14:30)
[2023-10-04] MEDS ORDERED: LORazepam 1 MG TAB PO PRN (14:30)
[2023-10-04 15:09] LABS: BODY FLUID CULTURE Not indicated. (.); LEGIONELLA ANTIGEN URINE Negative (Negative); ORGANISM ID Not indicated. (.); SPECIMEN SOURCE Urine (.); URINE STREP PNEUMONIAE ANTIGEN Negative (Negative)
[2023-10-04] MEDS: ACETAMINOPHEN 500 MG TAB PO PRN (18:14)
== END 2023-10-05 15:36 | disposition hospice, home (50) | DRG 196 ==
LOC: EDBD 11:55 → M ED 11:55 → M ED INP 16:48 → ENRESERV 20:06 → M PCU 21:13 → M MSPAV 10-01 00:53
PROVIDERS: ADMIT Internal Medicine; ATTEND Internal Medicine
PROC: XW033E5 Introduction of Remdesivir Anti-infective into Peripheral Vein, Percutaneous Approach, New Technology Group 5 (ICD-10-PCS; 2023-09-28)
PROC: 0T9130Z Drainage of Left Kidney with Drainage Device, Percutaneous Approach (ICD-10-PCS; 2023-09-29)
PROC: 3E0333Z Introduction of Anti-inflammatory into Peripheral Vein, Percutaneous Approach (ICD-10-PCS; principal; 2023-09-29 14:00)
DX: J84.9 Interstitial pulmonary disease, unspecified (principal); U07.1 COVID-19; J96.21 Acute and chronic respiratory failure with hypoxia; J15.69 Pneumonia due to other Gram-negative bacteria; I50.32 Chronic diastolic (congestive) heart failure; N13.30 Unspecified hydronephrosis; J44.1 Chronic obstructive pulmonary disease with (acute) exacerbation; N39.0 Urinary tract infection, site not specified; I13.0 Hypertensive heart and chronic kidney disease with heart failure and stage 1 through stage 4 chronic kidney disease, or unspecified chronic kidney disease; J44.0 Chronic obstructive pulmonary disease with (acute) lower respiratory infection; J96.11 Chronic respiratory failure with hypoxia; E46 Unspecified protein-calorie malnutrition; Z66 Do not resuscitate; N40.0 Benign prostatic hyperplasia without lower urinary tract symptoms; E83.42 Hypomagnesemia; F03.90 Unspecified dementia, unspecified severity, without behavioral disturbance, psychotic disturbance, mood disturbance, and anxiety; E78.5 Hyperlipidemia, unspecified; R26.89 Other abnormalities of gait and mobility; N18.30 Chronic kidney disease, stage 3 unspecified; J47.9 Bronchiectasis, uncomplicated; R54 Age-related physical debility; R13.10 Dysphagia, unspecified; Z79.899 Other long term (current) drug therapy; Z99.81 Dependence on supplemental oxygen; Z85.51 Personal history of malignant neoplasm of bladder